=== PATIENT | male | born 1960 | race African-American/Black ===

== ENCOUNTER → 2016-07-28 | Outpatient (CLI) | payer MEDICARE ==
[2016-07-28 15:34] LABS: BASOPHILS % (AUTO) 0.8 % (0.0-2.0); EOSINOPHILS % (AUTO) 2.5 % (0.0-3.0); LYMPHOCYTES % (AUTO) 15.7 % (20.0-45.0); MEAN CORPUSCULAR HEMOGLOBIN 27.3 PG (27.0-31.0); MEAN CORPUSCULAR HGB CONC 30.7 G/DL (32.0-36.0); MEAN CORPUSCULAR VOLUME 89 FL (80-99); MEAN PLATELET VOLUME 6.1 FL (6.5-10.1); MONOCYTES % (AUTO) 6.6 % (1.0-10.0); NEUTROPHILS % (AUTO) 74.4 % (45.0-75.0); PLATELET COUNT 310 K/UL (150-450); RED BLOOD COUNT 6.29 M/UL (4.70-6.10); RED CELL DISTRIBUTION WIDTH 14.9 % (11.6-14.8); WHITE BLOOD COUNT 12.6 K/UL (4.8-10.8)
[2016-07-28 16:02] LABS: ALANINE AMINOTRANSFERASE 18 U/L (3-41); ALBUMIN/GLOBULIN RATIO 1.2 (1.0-2.7); ANION GAP 14 (5-15); ASPARTATE AMINO TRANSFERASE 13 U/L (5-40); CALCIUM 9.7 mg/dL (8.6-10.2); CARBON DIOXIDE 31 mEQ/L (20-30); CHLORIDE 97 mEQ/L (98-107); CHOLESTEROL 218 mg/dL (< 200); CHOLESTEROL/HDL RATIO 3.7 (3.3-4.4); GLOMERULAR FILTRATION RATE > 60 mL/min (>60); HEMOLYSIS 7; LDL CHOLESTEROL (CALC.) 141 mg/dL (60-99); POTASSIUM 4.4 mEQ/L (3.4-4.9); SODIUM 142 mEQ/L (135-145); TOTAL PROTEIN 7.3 g/dL (6.6-8.7)
== END | disposition home or self-care (01) ==
LOC: LAB 15:03
DX: I10 Essential (primary) hypertension (principal); E11.9 Type 2 diabetes mellitus without complications; E66.01 Morbid (severe) obesity due to excess calories; I50.9 Heart failure, unspecified
CPT/HCPCS: 36415; 80053; 80061; 83036; 83090; 83880; 85025

== ENCOUNTER 2018-02-19 17:43 | Inpatient (IN) | payer MEDICARE ==
[2018-02-19] VITALS (14 sets, daily range): BP systolic 77–104; BP diastolic 28–95
[~2018-02-19] VITALS: Ht 180.3 cm; Wt 174.7 kg
[2018-02-19 18:28] LABS: HEMATOCRIT 24.3 % (42.0-52.0); HEMOGLOBIN 8.5 G/DL (14.2-18.0); MEAN CORPUSCULAR VOLUME 87 FL (80-99); PLATELET COUNT 60 K/UL (150-450); RED CELL DISTRIBUTION WIDTH 13.8 % (11.6-14.8); WHITE BLOOD COUNT 6.8 K/UL (4.8-10.8)
[2018-02-19 18:36] LABS: ALANINE AMINOTRANSFERASE 151 U/L (12-78); ALBUMIN 4.1 G/DL (3.4-5.0); ALBUMIN/GLOBULIN RATIO 1.5 (1.0-2.7); ALKALINE PHOSPHATASE 57 U/L (46-116); ANION GAP 11 mmol/L (5-15); ASPARTATE AMINO TRANSFERASE 37 U/L (15-37); BILIRUBIN,TOTAL 0.6 MG/DL (0.2-1.0); BLOOD UREA NITROGEN 82 mg/dL (7-18); CALCIUM 10.9 MG/DL (8.5-10.1); CARBON DIOXIDE 21 MMOL/L (21-32); CHLORIDE 96 MMOL/L (98-107); CREATINE KINASE 335 U/L (26-308); CREATININE 9.6 MG/DL (0.55-1.30); SODIUM 129 MMOL/L (136-145)
[2018-02-19 18:40] LABS: POTASSIUM 7.8 MMOL/L (3.5-5.1)
[2018-02-19] MEDS ORDERED: Insulin Human Regular 100units/ml 3ml IV ONE (18:45)
[2018-02-19] MEDS ORDERED: Calcium Gluconate 1gm/10ml vial IVP ONE (18:45)
[2018-02-19] MEDS ORDERED: Sodium Bicarbonate 50ml Carp IV ONE (18:45)
[2018-02-19] MEDS ORDERED: Atropine Inj 1mg/10ml Syr IVP ONE (18:45)
[2018-02-19] MEDS ORDERED: Albuterol ud Inhalation HHN ONE (18:45)
[2018-02-19] MEDS ORDERED: GLYBURIDE5 MG PO (20:40)
[2018-02-19] MEDS ORDERED: ASPIR 8181 MG ORAL (20:40)
[2018-02-19] MEDS ORDERED: ISOSORBIDE DINIT5 MG ORAL (20:40)
[2018-02-19] MEDS ORDERED: NORVASC10 MG ORAL (20:40)
[2018-02-19] MEDS ORDERED: CARVEDILOL3.125 MG ORAL (20:40)
[2018-02-19] MEDS ORDERED: METFORMIN HCL850 M1 ORAL (20:40)
[2018-02-19] MEDS ORDERED: BENAZEPRIL HCL20 MG ORAL (20:40)
[2018-02-19] MEDS ORDERED: Cefepime HCl 2 GM in D5W 55 ML IVPB ONE (20:45)
[2018-02-19] MEDS ORDERED: Heparin 5000 units/ml inj ONE (21:03)
[2018-02-19] MEDS ORDERED: Heparin 5000 units/ml inj SUBQ SCH (21:15)
[2018-02-19 21:17] LABS: APPEARANCE,URINE CLEAR; BILIRUBIN, URINE 1+ (NEGATIVE); GLUCOSE, URINE (UA) NEGATIVE (NEGATIVE); KETONES,URINE NEGATIVE (NEGATIVE); LEUKOCYTE ESTERASE ,URINE 1+ (NEGATIVE); NITRITE,URINE NEGATIVE (NEGATIVE); PH,URINE 5 (4.5-8.0); PROTEIN,URINE 2+ (NEGATIVE); UROBILINOGEN,URINE NORMAL MG/DL (0.0-1.0)
--- NOTE | 2018-02-19 21:21 | Brief Operative Note ---
Immediate Post Operative Note Operative Note Pre-op Diagnosis: sepsis, shock, hypotension, hyperkalemia, renal insufficiency, Procedure: 1. right IJ TLC placement 2. right IJ HD cath placement Post-op Diagnosis: same as pre-op Surgeon: nury Anesthesia: local Specimen: none Complications: none Condition: unstable Fluids: n/a Estimated Blood Loss: minimal Drains: none Implant(s) used?: Iain Muse Feb 19, 2018 21:21
[2018-02-19 21:28] LABS: COLOR,URINE YELLOW
[2018-02-19] MEDS ORDERED: Cefepime HCl 2 GM in D5W 110 ML IVPB ONE (21:30)
--- NOTE | 2018-02-19 21:55 | Pulmonolgy Critical Care Note ---
Critical Care - Asmt/Plan Problems: (1) HTN (hypertension) (2) Diabetes (3) Morbid obesity (4) Obesity hypoventilation syndrome (5) ONELIA (obstructive sleep apnea) (6) Dehydration (7) Hypotension (8) Hyponatremia (9) Hyperkalemia (10) VITOR (acute kidney injury) (11) Anemia Respiratory: monitor respiratory rate, adjust FIO2 - PRN O2 to keep SaO2 > 90% , CXR, ABG, other - BiPAP 15/5 qHS and PRN Cardiac: continue to monitor HR/BP, other - TTE Renal: keep IV fluid, check electrolytes, other - HD without UF ordered by renal Infectious Disease: continue antibiotics - per ID, F/u Cx's Gastrointestinal: start feedings - PO with aspiration precautions Endocrine: monitor blood sugar, check TSH, check HgA1C, other - Sliding scale Neurologic: keep patient comfortable Prophylaxis: Protonix, Heparin Disposition: keep in ICU Time Spent (Minutes): 60 Notes Reviewed: renal, other - Surgery, ERMD Discussed with: nurses, consultants Critical Care - Objective Last 24 Hour Vital Signs Date Time Temp Pulse Resp B/P (MAP) Pulse Ox O2 Delivery O2 Flow Rate FiO2 02/19/18 19:45 98.4 69 20 93/30 100 Nasal Cannula 2.0 28 98.4 02/19/18 19:30 98.2 64 22 87/28 100 Nasal Cannula 2.0 28 98.2 02/19/18 19:27 60 20 100 Nasal Cannula 2.0 28 02/19/18 19:21 52 19 100 Nasal Cannula 2.0 28 02/19/18 19:20 57 19 Nasal Cannula 2.0 28 02/19/18 19:20 Nasal Cannula 2.0 28 02/19/18 19:15 57 19 91/38 100 Nasal Cannula 2.0 02/19/18 19:10 57 19 91/43 100 Nasal Cannula 2.0 02/19/18 19:00 60 19 87/37 100 Nasal Cannula 2.0 02/19/18 19:00 58 19 92/43 100 Nasal Cannula 2.0 02/19/18 18:30 58 17 88/56 100 Nasal Cannula 2.0 02/19/18 17:45 98.4 56 16 77/55 100 Nasal Cannula 2.0 98.4 02/19/18 17:45 58 19 Nasal Cannula 2.0 02/19/18 17:37 98.4 64 16 77/55 99 Room Air 98.4 Status: awake, other - morbidly obese Condition: critical HEENT: atraumatic, normocephalic Neck: full ROM, trach Lungs: clear Heart: HR/BP unstable Abdomen: soft, non-tender, active bowel sounds Extremities: no C/C/E Accucheck: 66 Blood Sugars: BS not controlled Critical Care - Subjective ICU Day: 1 Intubation Day: N/A Interval Events: 57 M h/o CHRONIC HYPERCAPNIC RF, ONELIA/OHV, CKD, HTN, HL, DM BIB EMS with AMS and hypoTN, Na 129, K 7.8, BUN/Cr 82/9.6. Seen by surgery R ABHIJIT Lawrence placed, HD ordered, getting IVF. No F/C/CP/SOB/cough/VALENTINE/dizziness/N/V/D/C. He states he uses his BiPAP at home nightly and is on 2L O2 RTC> Active Scripts Medications Dose Route/Sig Max Daily Dose Days Date Category Carvedilol* (Carvedilol) 3.125 Mg Tablet Unknown Dose ORAL EVERY 12 HOURS 02/19/18 Reported Isosorbide Dinitrate* (Isosorbide Dinitrate) 5 Mg Tablet Unknown Dose ORAL 02/19/18 Reported Aspir 81* (Aspirin) 81 Mg Tablet.dr 81 Mg ORAL DAILY 02/19/18 Reported Glyburide 5 Mg Tablet 5 Mg PO 02/19/18 Reported Metformin Hcl* (Metformin HCl) 850 Mg Tablet 750 Mg ORAL DAILY 02/19/18 Reported Benazepril Hcl* (Benazepril HCl) 20 Mg Tablet 20 Mg ORAL EVERY 12 HOURS 02/19/18 Reported Norvasc (Amlodipine Besylate) 10 Mg Tablet 10 Mg ORAL DAILY 02/19/18 Reported Condition: critical IV Access: central EKG Rhythm: Sinus Rhythm FI02: 28 Sputum Amount: None Fluids: NS wide open Labs: Laboratory Tests Test 02/19/18 17:55 02/19/18 19:54 White Blood Count 6.8 K/UL (4.8-10.8) Red Blood Count 2.80 M/UL (4.70-6.10) L Hemoglobin 8.5 G/DL (14.2-18.0) L Hematocrit 24.3 % (42.0-52.0) L Mean Corpuscular Volume 87 FL (80-99) Mean Corpuscular Hemoglobin 30.5 PG (27.0-31.0) Mean Corpuscular Hemoglobin Concent 35.1 G/DL (32.0-36.0) Red Cell Distribution Width 13.8 % (11.6-14.8) Platelet Count 60 K/UL (150-450) L Mean Platelet Volume 6.5 FL (6.5-10.1) Neutrophils (%) (Auto) % (45.0-75.0) Lymphocytes (%) (Auto) % (20.0-45.0) Monocytes (%) (Auto) % (1.0-10.0) Eosinophils (%) (Auto) % (0.0-3.0) Basophils (%) (Auto) % (0.0-2.0) Differential Total Cells Counted 100 Neutrophils % (Manual) 49 % (45-75) Lymphocytes % (Manual) 38 % (20-45) Monocytes % (Manual) 10 % (1-10) Eosinophils % (Manual) 2 % (0-3) Basophils % (Manual) 1 % (0-2) Band Neutrophils 0 % (0-8) Platelet Estimate Decreased L Platelet Morphology Normal Hypochromasia 1+ Anisocytosis 1+ Sodium Level 129 MMOL/L (136-145) L Potassium Level 7.8 MMOL/L (3.5-5.1) *H Chloride Level 96 MMOL/L (98-107) L Carbon Dioxide Level 21 MMOL/L (21-32) Anion Gap 11 mmol/L (5-15) Blood Urea Nitrogen 82 mg/dL (7-18) H Creatinine 9.6 MG/DL (0.55-1.30) H Estimat Glomerular Filtration Rate 6.9 mL/min (>60) Glucose Level 86 MG/DL (74-106) Lactic Acid Level 1.50 mmol/L (0.4-2.0) Calcium Level 10.9 MG/DL (8.5-10.1) H Total Bilirubin 0.6 MG/DL (0.2-1.0) Aspartate Amino Transf (AST/SGOT) 37 U/L (15-37) Alanine Aminotransferase (ALT/SGPT) 151 U/L (12-78) H Alkaline Phosphatase 57 U/L (46-116) Total Creatine Kinase 335 U/L (26-308) H Troponin I 0.000 ng/mL (0.000-0.056) Total Protein 6.8 G/DL (6.4-8.2) Albumin 4.1 G/DL (3.4-5.0) Globulin 2.7 g/dL Albumin/Globulin Ratio 1.5 (1.0-2.7) Urine Color Yellow Urine Appearance Clear Urine pH 5 (4.5-8.0) Urine Specific [place] 1.015 (1.005-1.035) Urine Protein 2+ (NEGATIVE) H Urine Glucose (UA) Negative (NEGATIVE) Urine Ketones Negative (NEGATIVE) Urine Occult Blood 2+ (NEGATIVE) H Urine Nitrite Negative (NEGATIVE) Urine Bilirubin 1+ (NEGATIVE) H Urine Ictotest Negative (NEGATIVE) Urine Urobilinogen Normal MG/DL (0.0-1.0) Urine Leukocyte Esterase 1+ (NEGATIVE) H Urine RBC 5-10 /HPF (0 - 0) H Urine WBC 2-4 /HPF (0 - 0) Urine Squamous Epithelial Cells None /LPF (NONE/OCC) Urine Bacteria Few /HPF (NONE) Ovidio Brito MD Feb 19, 2018 21:55
--- NOTE | 2018-02-19 22:00 | Consultation ---
Consult Note Consult Note seen in ER Assessment/Plan acute renal failure- (on Glucophage- Lotensin), Hypotension underlying chronic renal failure- morbid obesity- DM Hypotension HyperKalemia ONELIA Anemia IV fluid- Dialysis - ICU setting Keep BP over 90 syst Anemia mehta avoid nephrotoxics Addison Sparks MD Feb 19, 2018 22:00
[2018-02-19] MEDS: Piperacillin/Tazobactam 2.25 GM in NS 110 ML IVPB SCH (22:51)
[2018-02-19] MEDS: DAPTOmycin 1,000 MG in NS 55 ML IV SCH (23:00)
[2018-02-20] VITALS (34 sets, daily range): BP systolic 61–141; BP diastolic 26–121
--- NOTE | 2018-02-20 00:05 | Emergency Room Report ---
History of Present Illness General Chief Complaint: Abnormal Labs Source: EMS Present Illness HPI Mr. Lopez is a very pleasant 57 yo male with hx of severe obesity, ONELIA, CKD, and NIDDM. He presents with severe generalized weakness for 3 weeks. Worse today. Unable to get up and stand on his own. He has been dieting recently. He is only eating vegetables and drinking water. He also been using laxatives which has caused diffuse diarrhea. He's had bilateral hip pain for several weeks since being bedbound. He denies fever. Denies abdominal pain. Denies chest pain. I spoke extensively with PCP Dr. Dimas who gave a comprehensive medical history. Patient has normal ejection fraction according to his report. His creatinine level ranges from 2-3. Medications Amlodipine 10 mg Aspirin 325 mg benazepril 20 mg Glyburide 5 mg Metformin 750 mg Isosorbide 10 mg Albuterol Allergies: Coded Allergies: No Known Allergies (Unverified , 02/19/18) Nursing Documentation-[facility] Past Medical History: No History, Except For Hx Cardiac Problems: Yes - CHF Hx Hypertension: Yes Hx Diabetes: Yes - type 2 Review of Systems Constitutional: Reports: malaise Respiratory: Denies: cough Cardiovascular: Denies: chest pain Gastrointestinal: Reports: diarrhea; Denies: abdominal pain, melena, hematemesis Musculoskeletal: Reports: back pain, muscle pain All Other Systems: negative except mentioned in HPI Physical Exam Vital Signs Date Time Temp Pulse Resp B/P (MAP) Pulse Ox O2 Delivery O2 Flow Rate FiO2 02/19/18 17:37 98.4 64 16 77/55 99 Room Air 98.4 02/19/18 17:45 2.0 02/19/18 19:20 28 Sp02 EP Interpretation: reviewed, normal General Appearance: alert, non-toxic, mild distress, other - pale clammy Head: normocephalic, atraumatic Eyes: bilateral eye normal inspection, bilateral eye PERRL ENT: hearing grossly normal, normal pharynx, no angioedema, normal voice, dry mucus membranes Neck: full range of motion, supple/symm/no masses Respiratory: chest non-tender, lungs clear, normal breath sounds, speaking full sentences Cardiovascular #1: regular rate, rhythm, no murmur Cardiovascular #2: 1+ radial (R), 1+ radial (L) Gastrointestinal: normal bowel sounds, non tender, soft, no guarding, no rebound Rectal: normal exam, normal rectal tone, heme negative stool, other - brown stool Musculoskeletal: back normal, normal range of motion, non-tender Neurologic: alert, oriented x3, responsive, motor strength/tone normal, sensory intact, speech normal Psychiatric: judgement/insight normal, memory normal, mood/affect normal Skin: normal color, no rash, warm/dry, other - no ulcers no skin break down Lymphatic: no adenopathy Procedures Critical Care Time Critical Care Time 100 minutes of critical care time excluding procedures were used in the care of the patient. I reviewed labs and imaging. I reviewed previous electronic medical record. I updated at the bedside. I spoke with multiple consultants. Patient required multiple reassessments. Medical Decision Making Diagnostic Impression: Primary Impression: VITOR (acute kidney injury) Additional Impressions: Obesity hypoventilation syndrome Anemia Diabetes Hyponatremia Morbid obesity ER Course Mr. Lopez had a prolonged ER course. I spoke with Dr. Dimas PMDevonte upon arrival gave extensive medical history on patient. Patient had persistent hypotension for which I felt was due to hypovolemia with history of decreased by mouth intake and laxative use as well as diarrhea. No evidence of GI bleeding. Hemoccult negative brown stool on exam. No indication of cardiac disease. Did have EKG abnormalities with widened QRS bradycardia and prolonged VA interval. I felt the EKG changes were due to hyperkalemia. Patient was treated appropriately for hyperkalemia. Still he had persistent hypotension. He received total 2 L normal saline with slight improvement of blood pressure. I highly appreciate the assistance of multiple consultants who evaluated patient and provided excellent care. These physicians include Dr. Santiago, Dr. Brito, Dr. Hsieh and Dr. Stewart. Mr. Lopez is admitted to ICU in criticial condition. Labs Test 02/19/18 17:55 02/19/18 19:54 02/19/18 21:44 White Blood Count 6.8 K/UL (4.8-10.8) Red Blood Count 2.80 M/UL (4.70-6.10) Hemoglobin 8.5 G/DL (14.2-18.0) Hematocrit 24.3 % (42.0-52.0) Mean Corpuscular Volume 87 FL (80-99) Mean Corpuscular Hemoglobin 30.5 PG (27.0-31.0) Mean Corpuscular Hemoglobin Concent 35.1 G/DL (32.0-36.0) Red Cell Distribution Width 13.8 % (11.6-14.8) Platelet Count 60 K/UL (150-450) Mean Platelet Volume 6.5 FL (6.5-10.1) Neutrophils (%) (Auto) % (45.0-75.0) Lymphocytes (%) (Auto) % (20.0-45.0) Monocytes (%) (Auto) % (1.0-10.0) Eosinophils (%) (Auto) % (0.0-3.0) Basophils (%) (Auto) % (0.0-2.0) Differential Total Cells Counted 100 Neutrophils % (Manual) 49 % (45-75) Lymphocytes % (Manual) 38 % (20-45) Monocytes % (Manual) 10 % (1-10) Eosinophils % (Manual) 2 % (0-3) Basophils % (Manual) 1 % (0-2) Band Neutrophils 0 % (0-8) Platelet Estimate Decreased Platelet Morphology Normal Hypochromasia 1+ Anisocytosis 1+ Sodium Level 129 MMOL/L (136-145) Potassium Level 7.8 MMOL/L (3.5-5.1) Chloride Level 96 MMOL/L (98-107) Carbon Dioxide Level 21 MMOL/L (21-32) Anion Gap 11 mmol/L (5-15) Blood Urea Nitrogen 82 mg/dL (7-18) Creatinine 9.6 MG/DL (0.55-1.30) Estimat Glomerular Filtration Rate 6.9 mL/min (>60) Glucose Level 86 MG/DL (74-106) Lactic Acid Level 1.50 mmol/L (0.4-2.0) Calcium Level 10.9 MG/DL (8.5-10.1) Total Bilirubin 0.6 MG/DL (0.2-1.0) Aspartate Amino Transf (AST/SGOT) 37 U/L (15-37) Alanine Aminotransferase (ALT/SGPT) 151 U/L (12-78) Alkaline Phosphatase 57 U/L (46-116) Total Creatine Kinase 335 U/L (26-308) Troponin I 0.000 ng/mL (0.000-0.056) Total Protein 6.8 G/DL (6.4-8.2) Albumin 4.1 G/DL (3.4-5.0) Globulin 2.7 g/dL Albumin/Globulin Ratio 1.5 (1.0-2.7) Urine Color Yellow Urine Appearance Clear Urine pH 5 (4.5-8.0) Urine Specific [place] 1.015 (1.005-1.035) Urine Protein 2+ (NEGATIVE) Urine Glucose (UA) Negative (NEGATIVE) Urine Ketones Negative (NEGATIVE) Urine Occult Blood 2+ (NEGATIVE) Urine Nitrite Negative (NEGATIVE) Urine Bilirubin 1+ (NEGATIVE) Urine Ictotest Negative (NEGATIVE) Urine Urobilinogen Normal MG/DL (0.0-1.0) Urine Leukocyte Esterase 1+ (NEGATIVE) Urine RBC 5-10 /HPF (0 - 0) Urine WBC 2-4 /HPF (0 - 0) Urine Squamous Epithelial Cells None /LPF (NONE/OCC) Urine Bacteria Few /HPF (NONE) Arterial Blood pH 7.333 (7.350-7.450) Arterial Blood Partial Pressure CO2 29.3 mmHg (35.0-45.0) Arterial Blood Partial Pressure O2 40.5 mmHg (75.0-100.0) Arterial Blood HCO3 15.2 mmol/L (22.0-26.0) Arterial Blood Oxygen Saturation 71.9 % (92.0-98.0) Arterial Blood Base Excess -9.7 Doyle Test Positive EKG Diagnostic Results Rate: bradycardiac Rhythm: other - sinus bradycardia ST Segments: other - right bundle branch block, wide QRS Other Impression prolonged VA interval wide QRS No ST elevation Chest X-Ray Diagnostic Results Chest X-Ray Diagnostic Results : Chest X-Ray Ordered: Yes # of Views/Limited/Complete: 1 View Indication: Other - critically ill Interpretation: no consolidation, no effusion, no pneumothorax Impression: No acute disease Electronically Signed by: This image has been electronically signed by Dr. David Wong Reevaluation Time: 20:00 Last Vital Signs Date Time Temp Pulse Resp B/P (MAP) Pulse Ox O2 Delivery O2 Flow Rate FiO2 02/19/18 22:59 Venturi Mask 15.0 50 02/19/18 22:59 66 20 02/19/18 22:45 100/44 (62) 100 02/19/18 22:30 94.7 94.7 Status: unchanged Reevaluation Impression persistent hypotension throughout majority of ER encounter Disposition: ADMITTED INPATIENT Condition: Critical Referrals: CAITLIN DIMAS (PCP) DAVID WONG Feb 20, 2018 00:05
[2018-02-20] MEDS ORDERED: NovoLOG Insulin Flexpen SUBQ SCH (06:30)
[2018-02-20 07:00] LABS: % IRON SATURATION 36 % (15-50); IRON 84 ug/dL (50-175); TOTAL IRON BINDING CAPACITY 236 ug/dL (250-450)
[2018-02-20 07:08] LABS: GAMMA GLUTAMYL TRANSPEPTIDASE 314 U/L (5-85); PHOSPHORUS 5.1 MG/DL (2.5-4.9)
[2018-02-20 07:20] LABS: HEMATOCRIT 20.2 % (42.0-52.0); MEAN CORPUSCULAR VOLUME 86 FL (80-99); PLATELET COUNT 53 K/UL (150-450); RED BLOOD COUNT 2.36 M/UL (4.70-6.10); RED CELL DISTRIBUTION WIDTH 13.6 % (11.6-14.8); WHITE BLOOD COUNT 6.3 K/UL (4.8-10.8)
[2018-02-20] MEDS: DAPTOmycin 1,000 MG in NS 55 ML IV SCH (07:20)
[2018-02-20 08:10] LABS: ALANINE AMINOTRANSFERASE 132 U/L (12-78); ALBUMIN 3.5 G/DL (3.4-5.0); ALBUMIN/GLOBULIN RATIO 1.5 (1.0-2.7); ALKALINE PHOSPHATASE 45 U/L (46-116); ANION GAP 12 mmol/L (5-15); ASPARTATE AMINO TRANSFERASE 36 U/L (15-37); BILIRUBIN,TOTAL 0.5 MG/DL (0.2-1.0); BLOOD UREA NITROGEN 78 mg/dL (7-18); CALCIUM 9.6 MG/DL (8.5-10.1); CARBON DIOXIDE 20 MMOL/L (21-32); CHLORIDE 101 MMOL/L (98-107); CHOLESTEROL 123 MG/DL (< 200); CREATININE 8.8 MG/DL (0.55-1.30); FERRITIN 494 NG/ML (8-388); HDL CHOLESTEROL 39 MG/DL (40-60); SODIUM 132 MMOL/L (136-145); TRIGLYCERIDES 64 MG/DL (30-150)
[2018-02-20 08:13] LABS: POTASSIUM 7.1 MMOL/L (3.5-5.1)
[2018-02-20] MEDS ORDERED: Albuterol/Ipratropium 3ml neb HHN PRN (08:30)
--- NOTE | 2018-02-20 08:30 | Pulmonolgy Critical Care Note ---
Critical Care - Asmt/Plan Problems: (1) HTN (hypertension) (2) Diabetes (3) Morbid obesity (4) Obesity hypoventilation syndrome (5) ONELIA (obstructive sleep apnea) (6) Dehydration (7) Hypotension (8) Hyponatremia (9) Hyperkalemia (10) VITOR (acute kidney injury) (11) Anemia (12) Hypoglycemia (13) Thrombocytopenia Respiratory: monitor respiratory rate, adjust FIO2 - Titrate to keep SaO2 ~ 90 , CXR, ABG, other - BiPAP 12/5 qHS and PRN, RTC and PRN HHN's Cardiac: other - F/U TTe Renal: keep IV fluid, check electrolytes, other - iHD per renal Infectious Disease: continue antibiotics - per ID, F/U Cx's Gastrointestinal: start feedings - PO feeding, aspiration precautions Endocrine: monitor blood sugar, continue sliding scale insulin Hematologic: monitor H/H, other - Check LDH, haptoglobin, retic, Fe panel, ferring, duplex bLE Prophylaxis: Protonix, SCDs Disposition: keep in ICU Time Spent (Minutes): 50 Notes Reviewed: renal Discussed with: nurses, consultants Critical Care - Objective Last 24 Hour Vital Signs Date Time Temp Pulse Resp B/P (MAP) Pulse Ox O2 Delivery O2 Flow Rate FiO2 02/20/18 07:00 82 23 107/50 (69) 100 02/20/18 06:00 81 26 107/51 (69) 100 02/20/18 05:00 76 20 95/32 (53) 100 02/20/18 04:00 50 02/20/18 04:00 95.4 74 20 101/36 (57) 100 95.4 02/20/18 04:00 Venturi Mask 15.0 02/20/18 03:57 76 02/20/18 03:30 76 20 100/39 (59) 100 02/20/18 03:00 77 17 76/36 (49) 100 02/20/18 02:53 Venturi Mask 13.5 02/20/18 02:44 94.7 79 20 80/39 (53) 94.7 02/20/18 02:00 73 17 61/26 (38) 100 02/20/18 01:00 71 16 74/33 (47) 100 02/20/18 00:22 71 02/20/18 00:00 69 15 73/50 (58) 100 02/20/18 00:00 50 02/20/18 00:00 Venturi Mask 15.0 02/19/18 23:30 74 22 104/44 (64) 100 02/19/18 23:00 93.9 72 20 99/95 (96) 93.9 02/19/18 23:00 Venturi Mask 13.5 02/19/18 23:00 72 19 92/35 (54) 100 02/19/18 22:59 Venturi Mask 15.0 50 02/19/18 22:59 66 20 Venturi Mask 15.0 50 02/19/18 22:45 73 19 100/44 (62) 100 02/19/18 22:30 94.7 74 20 96/49 (65) 98 94.7 02/19/18 22:17 82 02/19/18 22:16 93.9 76 20 84/51 (62) 98 93.9 02/19/18 22:15 Nasal Cannula 2.0 02/19/18 22:13 98.4 65 20 95/34 100 Nasal Cannula 2.0 28 98.4 02/19/18 22:13 98.4 69 20 93/30 100 Nasal Cannula 2.0 28 98.4 02/19/18 22:10 98.4 69 20 93/30 100 Nasal Cannula 2.0 28 98.4 02/19/18 19:45 98.4 69 20 93/30 100 Nasal Cannula 2.0 28 98.4 02/19/18 19:30 98.2 64 22 87/28 100 Nasal Cannula 2.0 28 98.2 02/19/18 19:27 60 20 100 Nasal Cannula 2.0 28 02/19/18 19:21 52 19 100 Nasal Cannula 2.0 28 02/19/18 19:20 57 19 Nasal Cannula 2.0 28 02/19/18 19:20 Nasal Cannula 2.0 28 02/19/18 19:15 57 19 91/38 100 Nasal Cannula 2.0 02/19/18 19:10 57 19 91/43 100 Nasal Cannula 2.0 02/19/18 19:00 60 19 87/37 100 Nasal Cannula 2.0 02/19/18 19:00 58 19 92/43 100 Nasal Cannula 2.0 02/19/18 18:30 58 17 88/56 100 Nasal Cannula 2.0 02/19/18 17:45 98.4 56 16 77/55 100 Nasal Cannula 2.0 98.4 02/19/18 17:45 58 19 Nasal Cannula 2.0 02/19/18 17:37 98.4 64 16 77/55 99 Room Air 98.4 Status: awake, other - morbidly obese Condition: improving HEENT: atraumatic, normocephalic Lungs: clear Heart: HR/BP stable Abdomen: soft, non-tender, active bowel sounds Extremities: no C/C/E Micro: Microbiology Date/Time Source Procedure Growth Status 02/19/18 19:54 Rectum Received Accucheck: 49 Blood Sugars: BS not controlled Critical Care - Subjective ROS Limited/Unobtainable: Yes ICU Day: 2 Intubation Day: N/A Interval Events: S/P HD net 0 BS this am 49 HH and plt lower Condition: improving IV Access: central - R IJ [place] EKG Rhythm: Sinus Rhythm FI02: 50 Sputum Amount: None Fluids: NS@200 I&O: Intake and Output 02/19/18 02/20/18 19:00 07:00 Intake Total 2110 ml Output Total 120 ml Balance 1990 ml Intake Oral 200 ml IV Total 1910 ml Output Urine Total 120 ml Hemodialysis UF 0 ml # Voids 1 Subjective: Feels better, less SOB, no cough, no SOB, no CP, no F/C, no N/V/D/C, no abd pain or urinary complaints Labs: Laboratory Tests Test 02/19/18 17:55 02/19/18 19:54 02/19/18 21:44 02/20/18 04:40 White Blood Count 6.8 K/UL (4.8-10.8) 6.3 K/UL (4.8-10.8) Red Blood Count 2.80 M/UL (4.70-6.10) L 2.36 M/UL (4.70-6.10) L Hemoglobin 8.5 G/DL (14.2-18.0) L 7.0 G/DL (14.2-18.0) L Hematocrit 24.3 % (42.0-52.0) L 20.2 % (42.0-52.0) L Mean Corpuscular Volume 87 FL (80-99) 86 FL (80-99) Mean Corpuscular Hemoglobin 30.5 PG (27.0-31.0) 29.9 PG (27.0-31.0) Mean Corpuscular Hemoglobin Concent 35.1 G/DL (32.0-36.0) 34.8 G/DL (32.0-36.0) Red Cell Distribution Width 13.8 % (11.6-14.8) 13.6 % (11.6-14.8) Platelet Count 60 K/UL (150-450) L 53 K/UL (150-450) L Mean Platelet Volume 6.5 FL (6.5-10.1) 6.6 FL (6.5-10.1) Neutrophils (%) (Auto) % (45.0-75.0) % (45.0-75.0) Lymphocytes (%) (Auto) % (20.0-45.0) % (20.0-45.0) Monocytes (%) (Auto) % (1.0-10.0) % (1.0-10.0) Eosinophils (%) (Auto) % (0.0-3.0) % (0.0-3.0) Basophils (%) (Auto) % (0.0-2.0) % (0.0-2.0) Differential Total Cells Counted 100 100 Neutrophils % (Manual) 49 % (45-75) 45 % (45-75) Lymphocytes % (Manual) 38 % (20-45) 42 % (20-45) Monocytes % (Manual) 10 % (1-10) 12 % (1-10) H Eosinophils % (Manual) 2 % (0-3) 1 % (0-3) Basophils % (Manual) 1 % (0-2) 0 % (0-2) Band Neutrophils 0 % (0-8) 0 % (0-8) Platelet Estimate Decreased L Decreased L Platelet Morphology Normal Normal Hypochromasia 1+ 3+ Anisocytosis 1+ 1+ Sodium Level 129 MMOL/L (136-145) L 132 MMOL/L (136-145) L Potassium Level 7.8 MMOL/L (3.5-5.1) *H 7.1 MMOL/L (3.5-5.1) *H Chloride Level 96 MMOL/L (98-107) L 101 MMOL/L (98-107) Carbon Dioxide Level 21 MMOL/L (21-32) 20 MMOL/L (21-32) L Anion Gap 11 mmol/L (5-15) 12 mmol/L (5-15) Blood Urea Nitrogen 82 mg/dL (7-18) H 78 mg/dL (7-18) H Creatinine 9.6 MG/DL (0.55-1.30) H 8.8 MG/DL (0.55-1.30) H Estimat Glomerular Filtration Rate 6.9 mL/min (>60) 7.6 mL/min (>60) Glucose Level 86 MG/DL (74-106) 25 MG/DL (74-106) *L Lactic Acid Level 1.50 mmol/L (0.4-2.0) Calcium Level 10.9 MG/DL (8.5-10.1) H 9.6 MG/DL (8.5-10.1) Total Bilirubin 0.6 MG/DL (0.2-1.0) 0.5 MG/DL (0.2-1.0) Aspartate Amino Transf (AST/SGOT) 37 U/L (15-37) 36 U/L (15-37) Alanine Aminotransferase (ALT/SGPT) 151 U/L (12-78) H 132 U/L (12-78) H Alkaline Phosphatase 57 U/L (46-116) 45 U/L (46-116) L Total Creatine Kinase 335 U/L (26-308) H Troponin I 0.000 ng/mL (0.000-0.056) 0.172 ng/mL (0.000-0.056) Total Protein 6.8 G/DL (6.4-8.2) 5.8 G/DL (6.4-8.2) L Albumin 4.1 G/DL (3.4-5.0) 3.5 G/DL (3.4-5.0) Globulin 2.7 g/dL 2.3 g/dL Albumin/Globulin Ratio 1.5 (1.0-2.7) 1.5 (1.0-2.7) Urine Color Yellow Urine Appearance Clear Urine pH 5 (4.5-8.0) Urine Specific [place] 1.015 (1.005-1.035) Urine Protein 2+ (NEGATIVE) H Urine Glucose (UA) Negative (NEGATIVE) Urine Ketones Negative (NEGATIVE) Urine Occult Blood 2+ (NEGATIVE) H Urine Nitrite Negative (NEGATIVE) Urine Bilirubin 1+ (NEGATIVE) H Urine Ictotest Negative (NEGATIVE) Urine Urobilinogen Normal MG/DL (0.0-1.0) Urine Leukocyte Esterase 1+ (NEGATIVE) H Urine RBC 5-10 /HPF (0 - 0) H Urine WBC 2-4 /HPF (0 - 0) Urine Squamous Epithelial Cells None /LPF (NONE/OCC) Urine Bacteria Few /HPF (NONE) Arterial Blood pH 7.333 (7.350-7.450) Arterial Blood Partial Pressure CO2 29.3 mmHg (35.0-45.0) L Arterial Blood Partial Pressure O2 40.5 mmHg (75.0-100.0) Arterial Blood HCO3 15.2 mmol/L (22.0-26.0) L Arterial Blood Oxygen Saturation 71.9 % (92.0-98.0) L Arterial Blood Base Excess -9.7 Doyle Test Positive Nucleated Red Blood Cells 2 /100 WBC Spherocytes 2+ Hemoglobin A1c 6.3 % (4.3-6.0) H Uric Acid 21.4 MG/DL (2.6-7.2) H Phosphorus Level 5.1 MG/DL (2.5-4.9) H Magnesium Level 1.9 MG/DL (1.8-2.4) Iron Level 84 ug/dL (50-175) Total Iron Binding Capacity 236 ug/dL (250-450) L Percent Iron Saturation 36 % (15-50) Unsaturated Iron Binding 152 ug/dL (112-346) Ferritin 494 NG/ML (8-388) H Gamma Glutamyl Transpeptidase 314 U/L (5-85) H C-Reactive Protein, Quantitative < 0.4 mg/dL (0.00-0.90) Pro-B-Type Natriuretic Peptide 751 pg/mL (0-125) H Triglycerides Level 64 MG/DL (30-150) Cholesterol Level 123 MG/DL (< 200) LDL Cholesterol 72 mg/dL (<100) HDL Cholesterol 39 MG/DL (40-60) L Cholesterol/HDL Ratio 3.2 (3.3-4.4) L Vitamin B12 Level 341 PG/ML (193-986) Folate 4.9 NG/ML (8.6-58.9) L Thyroid Stimulating Hormone (TSH) 0.681 uiU/mL (0.358-3.740) Ovidio Brito MD Feb 20, 2018 08:30
[2018-02-20] MEDS ORDERED: Heparin 5000 units/ml inj SUBQ SCH (09:00)
--- NOTE | 2018-02-20 09:03 | Diagnostic Imaging Report ---
Indication: Shortness of breath Technique: One view of the chest Comparison: none Findings: Body habitus limits evaluation. The patient is somewhat rotated. Apparent hazy opacities of both hemithoraces, right greater than left, may reflect pulmonary edema or may just be artifact of overlying soft tissue there does appear to be pleural fluid on the left. Impression: Probable left pleural effusion Hazy apparent parenchymal opacity, could be an artifact of overlying soft tissue. Correlate with clinical findings
--- NOTE | 2018-02-20 09:37 | Diagnostic Imaging Report ---
Indication: Post line placement Technique: One view of the chest Comparison: 3 hours earlier Findings: Interim placement of a right jugular central venous catheter, tip which projects at the level of the cavoatrial junction. Interim placement of a right jugular temporary dialysis catheter, tip which projects in the high right atrium the right hemithorax appears less opacified than previously, probably due to differences in positioning and decreased overlying soft tissue. The left hemithorax is not well imaged Impression: satisfactory positions of right jugular central venous catheter and right jugular temporary dialysis catheter. No radiographically evident complication
--- NOTE | 2018-02-20 10:09 | Consultation ---
Consult Note Consult Note Hematology Consult TABATHA BOUDREAUX: Nisha Stewart DOS: 02/20/18 RFC: anemia eval, thrombocytopenia HPI Mr. Lopez is a very pleasant 57 yo male with hx of severe obesity, ONELIA, CKD, and NIDDM. He presents with severe generalized weakness for 3 weeks. Worse today. Unable to get up and stand on his own. He has been dieting recently. He is only eating vegetables and drinking water. He also been using laxatives which has caused diffuse diarrhea. He's had bilateral hip pain for several weeks since being bedbound. He denies fever. Denies abdominal pain. Denies chest pain. Ct elevated at baseline, pending eval with renal today for potential HD Medications Amlodipine 10 mg Aspirin 325 mg benazepril 20 mg Glyburide 5 mg Metformin 750 mg Isosorbide 10 mg Albuterol Allergies: Coded Allergies: No Known Allergies (Unverified , 02/19/18) Nursing Documentation-[facility] Past Medical History: No History, Except For Hx Cardiac Problems: Yes - CHF Hx Hypertension: Yes Hx Diabetes: Yes - type 2 ER ROS - General Review of Systems Constitutional: Reports: malaise continues to persist Respiratory: Denies: cough Cardiovascular: Denies: chest pain Gastrointestinal: Reports: diarrhea; Denies: abdominal pain, melena, hematemesis Musculoskeletal: Reports: back pain, muscle pain All Other Systems: negative except mentioned in HPI ER Physical Exam - General Physical Exam Vital Signs Date Time Temp Pulse Resp B/P (MAP) Pulse Ox O2 Delivery O2 Flow Rate FiO2 02/19/18 17:37 98.4 64 16 77/55 99 Room Air 98.4 02/19/18 17:45 2.0 02/19/18 19:20 28 Sp02 EP Interpretation: reviewed, normal General Appearance: alert, non-toxic, mild distress, other - pale clammy Head: normocephalic, atraumatic Eyes: bilateral eye normal inspection, bilateral eye PERRL ENT: hearing grossly normal, normal pharynx, no angioedema, normal voice, dry mucus membranes Neck: full range of motion, supple/symm/no masses Respiratory: chest non-tender, lungs clear, normal breath sounds, speaking full sentences Cardiovascular #1: regular rate, rhythm, no murmur Cardiovascular #2: 1+ radial (R), 1+ radial (L) Gastrointestinal: normal bowel sounds, non tender, soft, no guarding, no rebound Rectal: normal exam, normal rectal tone Musculoskeletal: back normal, normal range of motion, non-tender Neurologic: alert, oriented x3, responsive Psychiatric: judgement/insight normal Skin: normal color, no rash, warm/dry Lymphatic: no adenopathy Labs Test 02/19/18 17:55 02/19/18 19:54 02/19/18 21:44 White Blood Count 6.8 K/UL (4.8-10.8) Red Blood Count 2.80 M/UL (4.70-6.10) Hemoglobin 8.5 G/DL (14.2-18.0) Hematocrit 24.3 % (42.0-52.0) Mean Corpuscular Volume 87 FL (80-99) Mean Corpuscular Hemoglobin 30.5 PG (27.0-31.0) Mean Corpuscular Hemoglobin Concent 35.1 G/DL (32.0-36.0) Red Cell Distribution Width 13.8 % (11.6-14.8) Platelet Count 60 K/UL (150-450) Mean Platelet Volume 6.5 FL (6.5-10.1) Neutrophils (%) (Auto) % (45.0-75.0) Lymphocytes (%) (Auto) % (20.0-45.0) Monocytes (%) (Auto) % (1.0-10.0) Eosinophils (%) (Auto) % (0.0-3.0) Basophils (%) (Auto) % (0.0-2.0) Differential Total Cells Counted 100 Neutrophils % (Manual) 49 % (45-75) Lymphocytes % (Manual) 38 % (20-45) Monocytes % (Manual) 10 % (1-10) Eosinophils % (Manual) 2 % (0-3) Basophils % (Manual) 1 % (0-2) Band Neutrophils 0 % (0-8) Platelet Estimate Decreased Platelet Morphology Normal Hypochromasia 1+ Anisocytosis 1+ Sodium Level 129 MMOL/L (136-145) Potassium Level 7.8 MMOL/L (3.5-5.1) Chloride Level 96 MMOL/L (98-107) Carbon Dioxide Level 21 MMOL/L (21-32) Anion Gap 11 mmol/L (5-15) Blood Urea Nitrogen 82 mg/dL (7-18) Creatinine 9.6 MG/DL (0.55-1.30) Estimat Glomerular Filtration Rate 6.9 mL/min (>60) Glucose Level 86 MG/DL (74-106) Lactic Acid Level 1.50 mmol/L (0.4-2.0) Calcium Level 10.9 MG/DL (8.5-10.1) Total Bilirubin 0.6 MG/DL (0.2-1.0) Aspartate Amino Transf (AST/SGOT) 37 U/L (15-37) Alanine Aminotransferase (ALT/SGPT) 151 U/L (12-78) Alkaline Phosphatase 57 U/L (46-116) Total Creatine Kinase 335 U/L (26-308) Troponin I 0.000 ng/mL (0.000-0.056) Total Protein 6.8 G/DL (6.4-8.2) Albumin 4.1 G/DL (3.4-5.0) Globulin 2.7 g/dL Albumin/Globulin Ratio 1.5 (1.0-2.7) Urine Color Yellow Urine Appearance Clear Urine pH 5 (4.5-8.0) Urine Specific [place] 1.015 (1.005-1.035) Urine Protein 2+ (NEGATIVE) Urine Glucose (UA) Negative (NEGATIVE) Urine Ketones Negative (NEGATIVE) Urine Occult Blood 2+ (NEGATIVE) Urine Nitrite Negative (NEGATIVE) Urine Bilirubin 1+ (NEGATIVE) Urine Ictotest Negative (NEGATIVE) Urine Urobilinogen Normal MG/DL (0.0-1.0) Urine Leukocyte Esterase 1+ (NEGATIVE) Urine RBC 5-10 /HPF (0 - 0) Urine WBC 2-4 /HPF (0 - 0) Urine Squamous Epithelial Cells None /LPF (NONE/OCC) Urine Bacteria Few /HPF (NONE) Arterial Blood pH 7.333 (7.350-7.450) Arterial Blood Partial Pressure CO2 29.3 mmHg (35.0-45.0) Arterial Blood Partial Pressure O2 40.5 mmHg (75.0-100.0) Arterial Blood HCO3 15.2 mmol/L (22.0-26.0) Arterial Blood Oxygen Saturation 71.9 % (92.0-98.0) Arterial Blood Base Excess -9.7 Doyle Test Positive EKG Diagnostic Results Rate: bradycardiac Rhythm: other - sinus bradycardia ST Segments: other - right bundle branch block, wide QRS Other Impression Assessment and Recs: # Thrombocytopenia - currently plt at 50k, potentially related to infection versus chronic --> hepatitis and hiv ordered to eval --> us of the abd ordered ro hsm and cirrhosis # Anemia of kidney disease/chronic disease --> anemia panel has been ordered --> transfuse to hgb >7 --> consider iron and epo depending on what anemia panel shows --> begin on iv iron for total of 5 doses --> begin folic acid 1mg po daily # Acute on chronic renal failure with VTIOR (acute kidney injury) --> may need HD as per nephrology to eval # Hyperkalemia has received kayxelate # Obesity hypoventilation syndrome # Diabetes # Morbid obesity GREATLY APPRECIATE CONSULTATION Octaviano Vizcaino MD Feb 20, 2018 10:09
--- NOTE | 2018-02-20 10:58 | Operative Note - Dictated ---
DATE OF OPERATION: 02/19/2018 PREOPERATIVE DIAGNOSES: 1. Hypotension. 2. Sepsis. 3. Renal insufficiency. 4. Severe hyperkalemia. 5. Shock. 6. Hypoglycemia. POSTOPERATIVE DIAGNOSES: 1. Hypotension. 2. Sepsis. 3. Renal insufficiency. 4. Severe hyperkalemia. 5. Shock. 6. Hypoglycemia. OPERATION PERFORMED: 1. Right internal jugular temporary hemodialysis catheter placement. 2. Right internal jugular triple-lumen central venous catheter insertion. ATTENDING SURGEON: Iain Santiago M.D. TWO WAY RADIO INSTALLER: None. ANESTHESIOLOGIST: None. ANESTHESIA: Local. ESTIMATED BLOOD LOSS: Minimal. IV FLUIDS: None. COMPLICATIONS: None. WOUND CLASSIFICATION: Class I. SPECIMENS: None. INDICATIONS FOR PROCEDURE: This is a 57-year-old male who was brought in by [facility] to the emergency department of [facility] with complaints of dizziness, weakness, malaise, fatigue, and worsening condition and required transport to the emergency department for evaluation. The patient was noted to be hypoglycemic initially, which was managed and following in the emergency department was noted to be anemic, renal insufficiency with creatinine 9.6 and BUN 82, very concerning potassium of 7.8 with potential EKG changes, hyponatremia, hypochloremic, and in a shock state with occasional confusion and significant discomfort. The patient was hypotensive with systolic blood pressure in the 70s and diastolic blood pressures in the 40s in the emergency department. Given the above, the patient required, one, temporary dialysis catheter for urgent dialysis given his hyperkalemia, renal insufficiency, and potential EKG changes, and, second, a central venous catheter for fluid resuscitation and pressors. The patient's body habitus was morbidly obese and line insertion was very difficult. Surgery was called to assist with line placement. Risks, benefits, and alternatives were discussed with the patient and his family at the bedside. After explaining all the risks, benefits, and alternatives, consent was obtained. PROCEDURE NOTE: The patient was made comfortable at the bedside in the emergency department for urgent procedure. Given the patient's body habitus and above comorbidities, subclavian line was not recommended and given the patient's habitus, an internal jugular line was chosen as desired place for position. Given the patient needed both a hemodialysis catheter and a triple lumen for the above given reasons, a double stick was planned for the right neck. Ultrasound was used and identified a good right internal jugular vein without any clot or abnormality for insertion. A time-out was taken. The right neck was prepped and draped in standard surgical fashion. All participants were wearing sterile gloves and gowns, hairnets, and mask. Ultrasound probe and sterile cover was placed. The right internal jugular was identified and local anesthetic was infiltrated in the proposed needle stick area points. Once appropriate anesthetic effect was achieved, the right internal jugular vein proximally was cannulated with the finder needle and good venous flow back was identified. A guidewire was placed through the needle and the needle removed. Guidewire was left in place and under ultrasound guidance was identified to be in the right internal jugular vein. Following this, a more distal portion of the right internal jugular vein was identified and in a similar fashion using ultrasound guidance, the right internal jugular vein was cannulated again with a finder needle and a guidewire was placed over the needle and needle was removed. Both guidewires were identified under ultrasound guidance to be within the internal jugular vein. Following this, a small incision was made around both guidewires. Dilators were used to dilate the tracts and beginning with the temporary hemodialysis catheter, it was inserted over the guidewire without complication. Guidewire was removed and discarded. Following this, the triple-lumen catheter was inserted over guidewire and guidewire was removed and discarded. No complication from insertion of either catheter was identified. All ports of the hemodialysis and triple-lumen catheter were aspirated and flushed easily without complication. The triple-lumen catheter was saline locked and the hemodialysis catheter was heparin locked. Of note, the patient was placed in Trendelenburg position at the beginning of the procedure. Once this was completed, both catheters were sutured to place using the provided 2-0 silk sutures and dressings were then applied. Chest x-ray was obtained to identify proper positioning of the catheters. Iain Santiago M.D. DR: Matheus JOB#: [id number] CC: RAÚL
[2018-02-20 11:00] LABS: % IRON SATURATION 36 % (15-50); IRON 90 ug/dL (50-175); TOTAL IRON BINDING CAPACITY 248 ug/dL (250-450)
[2018-02-20] MEDS ORDERED: Sodium Polystyrene Sulfonate 15gm Powder ORAL SCH ×2 (11:00→18:00)
--- NOTE | 2018-02-20 11:05 | Nephrology Progress Note ---
Assessment/Plan Problem List: (1) VITOR (acute kidney injury) (2) Dehydration (3) Hyperkalemia (4) Hypotension (5) ONELIA (obstructive sleep apnea) (6) Morbid obesity (7) Anemia (8) Diabetes Assessment acute renal failure- (on Glucophage- Lotensin), Hypotension underlying chronic renal failure- morbid obesity- DM Hypotension HyperKalemia ONELIA Anemia Plan IV fluid- Dialysis - done once- will do again ICU setting Keep BP over 90 syst Anemia mehta, B12- Folate- Iron- Transfuse avoid nephrotoxics change IV to D5NS Subjective ROS Limited/Unobtainable: No Constitutional: Reports: malaise, weakness Objective Objective Last 24 Hour Vital Signs Date Time Temp Pulse Resp B/P (MAP) Pulse Ox O2 Delivery O2 Flow Rate FiO2 02/20/18 08:00 84 18 Venturi Mask 15.0 50 02/20/18 08:00 Venturi Mask 15.0 50 02/20/18 07:00 82 23 107/50 (69) 100 02/20/18 07:00 Venturi Mask 02/20/18 07:00 Venturi Mask 02/20/18 06:00 81 26 107/51 (69) 100 02/20/18 05:00 76 20 95/32 (53) 100 02/20/18 04:00 50 02/20/18 04:00 95.4 74 20 101/36 (57) 100 95.4 02/20/18 04:00 Venturi Mask 15.0 02/20/18 03:57 76 02/20/18 03:30 76 20 100/39 (59) 100 02/20/18 03:00 77 17 76/36 (49) 100 02/20/18 02:53 Venturi Mask 13.5 02/20/18 02:44 94.7 79 20 80/39 (53) 94.7 02/20/18 02:00 73 17 61/26 (38) 100 02/20/18 01:00 71 16 74/33 (47) 100 02/20/18 00:22 71 02/20/18 00:00 69 15 73/50 (58) 100 02/20/18 00:00 50 02/20/18 00:00 Venturi Mask 15.0 02/19/18 23:30 74 22 104/44 (64) 100 02/19/18 23:00 93.9 72 20 99/95 (96) 93.9 02/19/18 23:00 Venturi Mask 13.5 02/19/18 23:00 72 19 92/35 (54) 100 02/19/18 22:59 Venturi Mask 15.0 50 02/19/18 22:59 66 20 Venturi Mask 15.0 50 02/19/18 22:45 73 19 100/44 (62) 100 02/19/18 22:30 94.7 74 20 96/49 (65) 98 94.7 02/19/18 22:17 82 02/19/18 22:16 93.9 76 20 84/51 (62) 98 93.9 02/19/18 22:15 Nasal Cannula 2.0 02/19/18 22:13 98.4 65 20 95/34 100 Nasal Cannula 2.0 28 98.4 02/19/18 22:13 98.4 69 20 93/30 100 Nasal Cannula 2.0 28 98.4 02/19/18 22:10 98.4 69 20 93/30 100 Nasal Cannula 2.0 28 98.4 02/19/18 19:45 98.4 69 20 93/30 100 Nasal Cannula 2.0 28 98.4 02/19/18 19:30 98.2 64 22 87/28 100 Nasal Cannula 2.0 28 98.2 02/19/18 19:27 60 20 100 Nasal Cannula 2.0 28 02/19/18 19:21 52 19 100 Nasal Cannula 2.0 28 02/19/18 19:20 57 19 Nasal Cannula 2.0 28 02/19/18 19:20 Nasal Cannula 2.0 28 02/19/18 19:15 57 19 91/38 100 Nasal Cannula 2.0 02/19/18 19:10 57 19 91/43 100 Nasal Cannula 2.0 02/19/18 19:00 60 19 87/37 100 Nasal Cannula 2.0 02/19/18 19:00 58 19 92/43 100 Nasal Cannula 2.0 02/19/18 18:30 58 17 88/56 100 Nasal Cannula 2.0 02/19/18 17:45 98.4 56 16 77/55 100 Nasal Cannula 2.0 98.4 02/19/18 17:45 58 19 Nasal Cannula 2.0 02/19/18 17:37 98.4 64 16 77/55 99 Room Air 98.4 Intake and Output 02/19/18 02/20/18 19:00 07:00 Intake Total 2110 ml Output Total 120 ml Balance 1990 ml Intake Oral 200 ml IV Total 1910 ml Output Urine Total 120 ml Hemodialysis UF 0 ml # Voids 1 Laboratory Tests 02/19/18 17:55: White Blood Count 6.8, Red Blood Count 2.80L, Hemoglobin 8.5L, Hematocrit 24.3L , Mean Corpuscular Volume 87, Mean Corpuscular Hemoglobin 30.5, Mean Corpuscular Hemoglobin Concent 35.1, Red Cell Distribution Width 13.8, Platelet Count 60L, Mean Platelet Volume 6.5, Neutrophils (%) (Auto) , Lymphocytes (%) ( Auto) , Monocytes (%) (Auto) , Eosinophils (%) (Auto) , Basophils (%) (Auto) , Differential Total Cells Counted 100, Neutrophils % (Manual) 49, Lymphocytes % ( Manual) 38, Monocytes % (Manual) 10, Eosinophils % (Manual) 2, Basophils % ( Manual) 1, Band Neutrophils 0, Platelet Estimate DecreasedL, Platelet Morphology Normal, Hypochromasia 1+, Anisocytosis 1+, Sodium Level 129L, Potassium Level 7.8*H, Chloride Level 96L, Carbon Dioxide Level 21, Anion Gap 11 , Blood Urea Nitrogen 82H, Creatinine 9.6H, Estimat Glomerular Filtration Rate 6.9, Glucose Level 86, Lactic Acid Level 1.50, Calcium Level 10.9H, Total Bilirubin 0.6, Aspartate Amino Transf (AST/SGOT) 37, Alanine Aminotransferase ( ALT/SGPT) 151H, Alkaline Phosphatase 57, Total Creatine Kinase 335H, Troponin I 0.000, Total Protein 6.8, Albumin 4.1, Globulin 2.7, Albumin/Globulin Ratio 1.5 02/19/18 19:54: Urine Color Yellow, Urine Appearance Clear, Urine pH 5, Urine Specific [place] 1.015, Urine Protein 2+H, Urine Glucose (UA) Negative, Urine Ketones Negative, Urine Occult Blood 2+H, Urine Nitrite Negative, Urine Bilirubin 1+H, Urine Ictotest Negative, Urine Urobilinogen Normal, Urine Leukocyte Esterase 1+H, Urine RBC 5-10H, Urine WBC 2-4, Urine Squamous Epithelial Cells None, Urine Bacteria Few 02/19/18 21:44: Arterial Blood pH 7.333L, Arterial Blood Partial Pressure CO2 29.3L, Arterial Blood Partial Pressure O2 40.5*L, Arterial Blood HCO3 15.2L, Arterial Blood Oxygen Saturation 71.9L, Arterial Blood Base Excess -9.7, Doyle Test Positive 02/20/18 04:40: White Blood Count 6.3, Red Blood Count 2.36L, Hemoglobin 7.0L, Hematocrit 20.2L , Mean Corpuscular Volume 86, Mean Corpuscular Hemoglobin 29.9, Mean Corpuscular Hemoglobin Concent 34.8, Red Cell Distribution Width 13.6, Platelet Count 53L, Mean Platelet Volume 6.6, Neutrophils (%) (Auto) , Lymphocytes (%) ( Auto) , Monocytes (%) (Auto) , Eosinophils (%) (Auto) , Basophils (%) (Auto) , Differential Total Cells Counted 100, Neutrophils % (Manual) 45, Lymphocytes % ( Manual) 42, Monocytes % (Manual) 12H, Eosinophils % (Manual) 1, Basophils % ( Manual) 0, Band Neutrophils 0, Platelet Estimate DecreasedL, Platelet Morphology Normal, Hypochromasia 3+, Anisocytosis 1+, Sodium Level 132L, Potassium Level 7.1*H, Chloride Level 101, Carbon Dioxide Level 20L, Anion Gap 12, Blood Urea Nitrogen 78H, Creatinine 8.8H, Estimat Glomerular Filtration Rate 7.6, Glucose Level 25*L, Calcium Level 9.6, Total Bilirubin 0.5, Aspartate Amino Transf (AST/SGOT) 36, Alanine Aminotransferase (ALT/SGPT) 132H, Alkaline Phosphatase 45L, Troponin I 0.172H, Total Protein 5.8L, Albumin 3.5, Globulin 2.3, Albumin/Globulin Ratio 1.5, Nucleated Red Blood Cells 2, Spherocytes 2+, Reticulocyte Count [Pending], Haptoglobin [Pending], Hemoglobin A1c 6.3H, Uric Acid 21.4H, Phosphorus Level 5.1H, Magnesium Level 1.9, Iron Level 84, Total Iron Binding Capacity 236L, Percent Iron Saturation 36, Unsaturated Iron Binding 152, Ferritin 494H, Gamma Glutamyl Transpeptidase 314H, C-Reactive Protein, Quantitative < 0.4, Pro-B-Type Natriuretic Peptide 751H, Triglycerides Level 64, Cholesterol Level 123, LDL Cholesterol 72, HDL Cholesterol 39L, Cholesterol/HDL Ratio 3.2L, Vitamin B12 Level 341, Folate 4.9L, Thyroid Stimulating Hormone (TSH) 0.681 02/20/18 09:00: Iron Level 90, Total Iron Binding Capacity 248L, Percent Iron Saturation 36, Unsaturated Iron Binding 158, Ferritin [Pending], Lactate Dehydrogenase [Pending ], Vitamin B12 Level [Pending], Folate [Pending], HIV (1&2) Antibody Rapid Negative 02/20/18 09:50: Arterial Blood pH 7.192*L, Arterial Blood Partial Pressure CO2 46.0H, Arterial Blood Partial Pressure O2 132.7H, Arterial Blood HCO3 17.3L, Arterial Blood Oxygen Saturation 97.2, Arterial Blood Base Excess -10.2, Doyle Test Positive Height (Feet): 5 Height (Inches): 11.00 Weight (Pounds): 385 General Appearance: mild distress Cardiovascular: normal rate Respiratory/Chest: decreased breath sounds Abdomen: other - obese Extremities: other - no edema Addison Sparks MD Feb 20, 2018 11:05
[2018-02-20] MEDS: Pantoprazole Inj IVP SCH ×2 (11:08→21:50)
[2018-02-20] MEDS: Piperacillin/Tazobactam 2.25 GM in NS 110 ML IVPB SCH ×2 (11:08→21:51)
[2018-02-20] MEDS: D5NS 1,000 ML IV SCH ×3 (11:36→21:50)
[2018-02-20] MEDS: Albuterol/Ipratropium 3ml neb HHN SCH ×2 (12:56→19:00)
[2018-02-20] MEDS ORDERED: Vitamin B12 1000mcg/ml Inj IM SCH (13:00)
[2018-02-20] MEDS ORDERED: Iron Sucrose 200 MG in NS 50 ML IV ONE (13:00)
--- NOTE | 2018-02-20 14:32 | Diagnostic Imaging Report ---
Indication: Acute renal failure Technique: Grayscale and duplex images of the kidneys, retroperitoneum, and bladder were obtained. Comparison: none Findings: Exam is somewhat limited due to patient body habitus. Right kidney measures 12 cm in length. Left kidney measures 11.5 cm in length. Both kidneys demonstrate normal echogenicity. There is mild fullness to the right renal collecting system but no samia hydronephrosis. No left hydronephrosis. There is a 2.4 cm cyst in the right upper pole. Normal inferior vena cava. Bladder is empty, contains a Gallegos catheter. Incidentally noted are gallstones Impression: Mild right renal collecting system fullness without samia hydronephrosis No left hydronephrosis Empty bladder with a Gallegos catheter Incidental finding right upper pole renal cyst Gallstones incidentally noted.
--- NOTE | 2018-02-20 15:32 | Cardiology Report ---
APPROVED REPORT EXAM: Two-dimensional and M-mode echocardiogram with Doppler and color Doppler. M-Mode DIMENSIONS IVSd1.5 (0.7-1.1cm)Left Atrium (MM)4.0 (1.6-4.0cm) LVDd4.4 (3.5-5.6cm)Aortic Root3.3 (2.0-3.7cm) PWd1.8 (0.7-1.1cm)Aortic Cusp Exc.1.9 (1.5-2.0cm) IVSs2.3 cm LVDs2.6 (2.5-4.0cm) PWs2.1 cm window Normal left ventricular chamber size, systolic function and wall motion to the extent visualized Left ventricular ejection fraction estimated to be 60-65%. No evidence of left ventricular hypertrophy . No evidence pericardial effusion. All other cardiac chamber sizes are within normal limits. Focal aortic valve sclerosis with adequate cusp excursion. Thickened mitral valve leaflets with normal excursion. Mitral annulus and aortic root calcification. Pulmonic valve not well visualized. Normal tricuspid valve structure. IVC at size 2.0 with physiologic collapse. A color flow and spectral Doppler study was performed and revealed: No aortic regurgitation. Trace mitral regurgitation. Trace tricuspid regurgitation. Tricuspid systolic velocities suggests peak right ventricular systolic pressure of 23mmHg
--- NOTE | 2018-02-20 15:35 | Cardiology Report ---
APPROVED REPORT EKG Measurement Heart [id number] MD [id number] Sinus bradycardia Right bundle branch block T wave abnormality, consider lateral ischemia Abnormal ECG
--- NOTE | 2018-02-20 15:54 | Infectious Diseases Prog Note ---
Assessment/Plan Problems: (1) Septic shock Assessment & Plan: with hypotension and respiratory failure, will start patient on zosyn and daptomycin pending blood culture results, continue hydration and pressors as needed. will deescalate his antibiotics based on his culture results (2) Dehydration Assessment & Plan: continue ivf and transfuse blood products as need for blood pressure support (3) Hyperkalemia (4) Diabetes Assessment & Plan: recommend tight glycemic control to keep blood glucose between 100-140 (5) VITOR (acute kidney injury) Assessment & Plan: with uremia and metabolic acidosis , started on HD as per renal. (6) Thrombocytopenia Assessment & Plan: suspect due to sepsis , monitor platelets, hematology is following, avoid heparin products (7) Acute respiratory failure with hypoxemia Assessment & Plan: due to the above , on BIPAP , still acidotic , pulmonary is following , monitor ABG Subjective Allergies: Coded Allergies: No Known Allergies (Unverified , 02/19/18) Objective Vital Signs Last 24 Hour Vital Signs Date Time Temp Pulse Resp B/P (MAP) Pulse Ox O2 Delivery O2 Flow Rate FiO2 02/20/18 14:52 80 26 97 Facial 25 02/20/18 14:00 78 16 90/34 (52) 94 02/20/18 13:06 77 23 100 Bi-pap 25 02/20/18 13:00 25 02/20/18 13:00 78 16 100/38 (58) 96 02/20/18 12:56 74 22 100 Bi-pap 25 02/20/18 12:55 77 22 100 Facial 25 02/20/18 12:00 30 02/20/18 12:00 Nasal Cannula 2.0 02/20/18 12:00 98.5 79 23 111/29 (56) 98 98.5 02/20/18 11:30 77 28 99 Facial 30 02/20/18 11:18 30 02/20/18 11:00 84 23 103/49 (67) 97 02/20/18 10:00 88 23 117/40 (65) 99 02/20/18 09:00 85 24 104/43 (63) 100 02/20/18 08:00 84 18 Venturi Mask 15.0 50 02/20/18 08:00 Venturi Mask 15.0 50 02/20/18 08:00 Nasal Cannula 2.0 02/20/18 08:00 98.0 84 22 102/40 (60) 100 98.0 02/20/18 07:00 82 23 107/50 (69) 100 02/20/18 07:00 Venturi Mask 02/20/18 07:00 Venturi Mask 02/20/18 06:00 81 26 107/51 (69) 100 02/20/18 05:00 76 20 95/32 (53) 100 02/20/18 04:00 50 02/20/18 04:00 95.4 74 20 101/36 (57) 100 95.4 02/20/18 04:00 Venturi Mask 15.0 02/20/18 03:57 76 02/20/18 03:30 76 20 100/39 (59) 100 02/20/18 03:00 77 17 76/36 (49) 100 02/20/18 02:53 Venturi Mask 13.5 02/20/18 02:44 94.7 79 20 80/39 (53) 94.7 02/20/18 02:00 73 17 61/26 (38) 100 02/20/18 01:00 71 16 74/33 (47) 100 02/20/18 00:22 71 02/20/18 00:00 69 15 73/50 (58) 100 02/20/18 00:00 50 02/20/18 00:00 Venturi Mask 15.0 02/19/18 23:30 74 22 104/44 (64) 100 02/19/18 23:00 93.9 72 20 99/95 (96) 93.9 02/19/18 23:00 Venturi Mask 13.5 02/19/18 23:00 72 19 92/35 (54) 100 02/19/18 22:59 Venturi Mask 15.0 50 02/19/18 22:59 66 20 Venturi Mask 15.0 50 02/19/18 22:45 73 19 100/44 (62) 100 02/19/18 22:30 94.7 74 20 96/49 (65) 98 94.7 02/19/18 22:17 82 02/19/18 22:16 93.9 76 20 84/51 (62) 98 93.9 02/19/18 22:15 Nasal Cannula 2.0 02/19/18 22:13 98.4 65 20 95/34 100 Nasal Cannula 2.0 28 98.4 02/19/18 22:13 98.4 69 20 93/30 100 Nasal Cannula 2.0 28 98.4 02/19/18 22:10 98.4 69 20 93/30 100 Nasal Cannula 2.0 28 98.4 02/19/18 19:45 98.4 69 20 93/30 100 Nasal Cannula 2.0 28 98.4 02/19/18 19:30 98.2 64 22 87/28 100 Nasal Cannula 2.0 28 98.2 02/19/18 19:27 60 20 100 Nasal Cannula 2.0 28 02/19/18 19:21 52 19 100 Nasal Cannula 2.0 28 02/19/18 19:20 57 19 Nasal Cannula 2.0 28 02/19/18 19:20 Nasal Cannula 2.0 28 02/19/18 19:15 57 19 91/38 100 Nasal Cannula 2.0 02/19/18 19:10 57 19 91/43 100 Nasal Cannula 2.0 02/19/18 19:00 60 19 87/37 100 Nasal Cannula 2.0 02/19/18 19:00 58 19 92/43 100 Nasal Cannula 2.0 02/19/18 18:30 58 17 88/56 100 Nasal Cannula 2.0 02/19/18 17:45 98.4 56 16 77/55 100 Nasal Cannula 2.0 98.4 02/19/18 17:45 58 19 Nasal Cannula 2.0 02/19/18 17:37 98.4 64 16 77/55 99 Room Air 98.4 Height (Feet): 5 Height (Inches): 11.00 Weight (Pounds): 385 Microbiology Date/Time Source Procedure Growth Status 02/19/18 19:54 Rectum Received Laboratory Tests Test 02/19/18 17:55 02/19/18 19:54 02/19/18 21:44 02/20/18 04:00 White Blood Count 6.8 K/UL (4.8-10.8) Red Blood Count 2.80 M/UL (4.70-6.10) L Hemoglobin 8.5 G/DL (14.2-18.0) L Hematocrit 24.3 % (42.0-52.0) L Mean Corpuscular Volume 87 FL (80-99) Mean Corpuscular Hemoglobin 30.5 PG (27.0-31.0) Mean Corpuscular Hemoglobin Concent 35.1 G/DL (32.0-36.0) Red Cell Distribution Width 13.8 % (11.6-14.8) Platelet Count 60 K/UL (150-450) L Mean Platelet Volume 6.5 FL (6.5-10.1) Neutrophils (%) (Auto) % (45.0-75.0) Lymphocytes (%) (Auto) % (20.0-45.0) Monocytes (%) (Auto) % (1.0-10.0) Eosinophils (%) (Auto) % (0.0-3.0) Basophils (%) (Auto) % (0.0-2.0) Differential Total Cells Counted 100 Neutrophils % (Manual) 49 % (45-75) Lymphocytes % (Manual) 38 % (20-45) Monocytes % (Manual) 10 % (1-10) Eosinophils % (Manual) 2 % (0-3) Basophils % (Manual) 1 % (0-2) Band Neutrophils 0 % (0-8) Platelet Estimate Decreased L Platelet Morphology Normal Hypochromasia 1+ Anisocytosis 1+ Sodium Level 129 MMOL/L (136-145) L Potassium Level 7.8 MMOL/L (3.5-5.1) *H Chloride Level 96 MMOL/L (98-107) L Carbon Dioxide Level 21 MMOL/L (21-32) Anion Gap 11 mmol/L (5-15) Blood Urea Nitrogen 82 mg/dL (7-18) H Creatinine 9.6 MG/DL (0.55-1.30) H Estimat Glomerular Filtration Rate 6.9 mL/min (>60) Glucose Level 86 MG/DL (74-106) Lactic Acid Level 1.50 mmol/L (0.4-2.0) Calcium Level 10.9 MG/DL (8.5-10.1) H Total Bilirubin 0.6 MG/DL (0.2-1.0) Aspartate Amino Transf (AST/SGOT) 37 U/L (15-37) Alanine Aminotransferase (ALT/SGPT) 151 U/L (12-78) H Alkaline Phosphatase 57 U/L (46-116) Total Creatine Kinase 335 U/L (26-308) H Troponin I 0.000 ng/mL (0.000-0.056) Total Protein 6.8 G/DL (6.4-8.2) Albumin 4.1 G/DL (3.4-5.0) Globulin 2.7 g/dL Albumin/Globulin Ratio 1.5 (1.0-2.7) Urine Color Yellow Urine Appearance Clear Urine pH 5 (4.5-8.0) Urine Specific Ariel 1.015 (1.005-1.035) Urine Protein 2+ (NEGATIVE) H Urine Glucose (UA) Negative (NEGATIVE) Urine Ketones Negative (NEGATIVE) Urine Occult Blood 2+ (NEGATIVE) H Urine Nitrite Negative (NEGATIVE) Urine Bilirubin 1+ (NEGATIVE) H Urine Ictotest Negative (NEGATIVE) Urine Urobilinogen Normal MG/DL (0.0-1.0) Urine Leukocyte Esterase 1+ (NEGATIVE) H Urine RBC 5-10 /HPF (0 - 0) H Urine WBC 2-4 /HPF (0 - 0) Urine Squamous Epithelial Cells None /LPF (NONE/OCC) Urine Bacteria Few /HPF (NONE) Arterial Blood pH 7.333 (7.350-7.450) Arterial Blood Partial Pressure CO2 29.3 mmHg (35.0-45.0) L Arterial Blood Partial Pressure O2 40.5 mmHg (75.0-100.0) Arterial Blood HCO3 15.2 mmol/L (22.0-26.0) L Arterial Blood Oxygen Saturation 71.9 % (92.0-98.0) L Arterial Blood Base Excess -9.7 Doyle Test Positive C-Reactive Protein, Quantitative < 0.4 mg/dL (0.00-0.90) Test 02/20/18 04:40 02/20/18 09:00 02/20/18 09:50 02/20/18 10:50 White Blood Count 6.3 K/UL (4.8-10.8) Red Blood Count 2.36 M/UL (4.70-6.10) L Hemoglobin 7.0 G/DL (14.2-18.0) L Hematocrit 20.2 % (42.0-52.0) L Mean Corpuscular Volume 86 FL (80-99) Mean Corpuscular Hemoglobin 29.9 PG (27.0-31.0) Mean Corpuscular Hemoglobin Concent 34.8 G/DL (32.0-36.0) Red Cell Distribution Width 13.6 % (11.6-14.8) Platelet Count 53 K/UL (150-450) L Mean Platelet Volume 6.6 FL (6.5-10.1) Neutrophils (%) (Auto) % (45.0-75.0) Lymphocytes (%) (Auto) % (20.0-45.0) Monocytes (%) (Auto) % (1.0-10.0) Eosinophils (%) (Auto) % (0.0-3.0) Basophils (%) (Auto) % (0.0-2.0) Differential Total Cells Counted 100 Neutrophils % (Manual) 45 % (45-75) Lymphocytes % (Manual) 42 % (20-45) Monocytes % (Manual) 12 % (1-10) H Eosinophils % (Manual) 1 % (0-3) Basophils % (Manual) 0 % (0-2) Band Neutrophils 0 % (0-8) Nucleated Red Blood Cells 2 /100 WBC Platelet Estimate Decreased L Platelet Morphology Normal Hypochromasia 3+ Anisocytosis 1+ Spherocytes 2+ Reticulocyte Count 1.3 % (0.0-2.0) Haptoglobin Pending Sodium Level 132 MMOL/L (136-145) L Potassium Level 7.1 MMOL/L (3.5-5.1) *H Chloride Level 101 MMOL/L (98-107) Carbon Dioxide Level 20 MMOL/L (21-32) L Anion Gap 12 mmol/L (5-15) Blood Urea Nitrogen 78 mg/dL (7-18) H Creatinine 8.8 MG/DL (0.55-1.30) H Estimat Glomerular Filtration Rate 7.6 mL/min (>60) Glucose Level 25 MG/DL (74-106) *L Hemoglobin A1c 6.3 % (4.3-6.0) H Uric Acid 21.4 MG/DL (2.6-7.2) H Calcium Level 9.6 MG/DL (8.5-10.1) Phosphorus Level 5.1 MG/DL (2.5-4.9) H Magnesium Level 1.9 MG/DL (1.8-2.4) Iron Level 84 ug/dL (50-175) 90 ug/dL (50-175) Total Iron Binding Capacity 236 ug/dL (250-450) L 248 ug/dL (250-450) L Percent Iron Saturation 36 % (15-50) 36 % (15-50) Unsaturated Iron Binding 152 ug/dL (112-346) 158 ug/dL (112-346) Ferritin 494 NG/ML (8-388) H 611 NG/ML (8-388) H Total Bilirubin 0.5 MG/DL (0.2-1.0) Gamma Glutamyl Transpeptidase 314 U/L (5-85) H Aspartate Amino Transf (AST/SGOT) 36 U/L (15-37) Alanine Aminotransferase (ALT/SGPT) 132 U/L (12-78) H Alkaline Phosphatase 45 U/L (46-116) L Troponin I 0.172 ng/mL (0.000-0.056) C-Reactive Protein, Quantitative < 0.4 mg/dL (0.00-0.90) Pro-B-Type Natriuretic Peptide 751 pg/mL (0-125) H Total Protein 5.8 G/DL (6.4-8.2) L Albumin 3.5 G/DL (3.4-5.0) Globulin 2.3 g/dL Albumin/Globulin Ratio 1.5 (1.0-2.7) Triglycerides Level 64 MG/DL (30-150) Cholesterol Level 123 MG/DL (< 200) LDL Cholesterol 72 mg/dL (<100) HDL Cholesterol 39 MG/DL (40-60) L Cholesterol/HDL Ratio 3.2 (3.3-4.4) L Vitamin B12 Level 341 PG/ML (193-986) 353 PG/ML (193-986) Folate 4.9 NG/ML (8.6-58.9) L 4.4 NG/ML (8.6-58.9) L Thyroid Stimulating Hormone (TSH) 0.681 uiU/mL (0.358-3.740) Lactate Dehydrogenase 96 U/L (81-234) HIV (1&2) Antibody Rapid Negative (NEGATIVE) Arterial Blood pH 7.192 (7.350-7.450) Arterial Blood Partial Pressure CO2 46.0 mmHg (35.0-45.0) H Arterial Blood Partial Pressure O2 132.7 mmHg (75.0-100.0) H Arterial Blood HCO3 17.3 mmol/L (22.0-26.0) L Arterial Blood Oxygen Saturation 97.2 % (92.0-98.0) Arterial Blood Base Excess -10.2 Doyle Test Positive Stool Occult Blood Negative (NEGATIVE) Test 02/20/18 12:00 02/20/18 13:35 Troponin I 0.083 ng/mL (0.000-0.056) Hepatitis A IgM Antibody Pending Hepatitis B Surface Antigen Pending Hepatitis B Core IgM Antibody Pending Hepatitis C Antibody Pending Arterial Blood pH 7.155 (7.350-7.450) Arterial Blood Partial Pressure CO2 48.5 mmHg (35.0-45.0) H Arterial Blood Partial Pressure O2 84.2 mmHg (75.0-100.0) Arterial Blood HCO3 16.7 mmol/L (22.0-26.0) L Arterial Blood Oxygen Saturation 92.9 % (92.0-98.0) Arterial Blood Base Excess -11.3 Doyle Test Positive Current Medications Medications (Trade) Dose Ordered Sig/Taryn Route PRN Reason Start Time Stop Time Status Last Admin Dose Admin Albuterol/ Ipratropium (Albuterol/ Ipratropium) 3 ml Q4H PRN HHN Shortness of Breath 02/20/18 08:30 02/25/18 08:29 Albuterol/ Ipratropium (Albuterol/ Ipratropium) 3 ml Q6HRT HHN 02/20/18 13:00 02/25/18 12:59 02/20/18 12:56 Allopurinol (Allopurinol) 300 mg DAILY ORAL 02/21/18 09:00 03/23/18 08:59 Chlorhexidine Gluconate (Mimi-Hex 2%) 1 applic DAILY@2000 TOPIC 02/20/18 20:00 03/22/18 19:59 Cyanocobalamin (Vitamin B12) 1,000 mcg DAILY IM 02/20/18 13:00 02/22/18 09:01 02/20/18 14:28 Daptomycin 1000 mg/Sodium Chloride 55 ml @ 100 mls/hr Q48H IV 02/19/18 23:00 02/26/18 22:59 02/20/18 07:20 Dextrose (Dextrose 50%) 25 ml STAT PRN IV Hypoglycemia 02/19/18 22:00 03/21/18 21:59 02/19/18 23:03 Dextrose (Dextrose 50%) 50 ml STAT PRN IV Hypoglycemia 02/19/18 22:00 03/21/18 21:59 02/20/18 07:54 Dextrose/Sodium Chloride 1,000 ml @ 200 mls/hr Q5H IV 02/20/18 11:15 03/22/18 11:14 02/20/18 11:36 Folic Acid (Folate) 5 mg DAILY ORAL 02/21/18 09:00 03/22/18 09:59 Norepinephrine Bitartrate 4 mg/ Dextrose 250 ml @ 0 mls/hr Q24H IV 02/20/18 15:30 03/22/18 15:29 Pantoprazole (Protonix) 40 mg EVERY 12 HOURS IVP 02/20/18 09:00 03/22/18 08:59 02/20/18 11:08 Piperacillin Sod/ Tazobactam Sod 2.25 gm/Sodium Chloride 110 ml @ 220 mls/hr Q12H IVPB 02/19/18 22:00 02/26/18 21:59 02/20/18 11:08 Sodium Polystyrene Sulfonate (Kayexalate) 30 gm ONCE ORAL 02/20/18 18:00 02/20/18 19:00 Neil Brooke M.D. Feb 20, 2018 15:54
--- NOTE | 2018-02-20 16:15 | General Progress Note ---
Assessment/Plan Assessment/Plan S: I am very tired O: appears comfortable. pain is well managed. poor historian. although awake , but demonstrate lack of cognition and memory. PHYSICAL EXAMINATION: HEENT: Head is atraumatic and normocephalic. CHEST: Clear to auscultation. No wheezing. No crackles. HEART: S1 and S2. Regular rate and rhythm. ABDOMEN: Soft. No organomegaly. MUSCULOSKELETAL: No gross lateralized motor deficit. NEUROLOGY: The patient is awake. He has decrease and lack in the memory and lack in the cognition and slow mentation. MUSCULOSKELETAL: No gross focal motor deficit. Medication : reviewed and reconciled in the chart ASSESSMENT: 1. Acute encephalopathy 2. Septic shock, source work in progress 2. Diabetes type 2, uncontrolled with low blood sugar. 3. Noncompliance with medication and treatment advise as an outpatient. 4. Acute on chronic anemia. 5. Abnormal liver function tests. 6. Gastrointestinal and deep vein thrombosis prophylaxes. 7. Hyperkalemia. PLAN OF CARE: I discussed the care in detail with Dr. Sparks. Proceed with HD. current empirical antibiotic regiments. Remains in very serious medical cnd. Endo, Dr Reece consulted and notified. Subjective Allergies: Coded Allergies: No Known Allergies (Unverified , 02/19/18) Objective Last 24 Hour Vital Signs Date Time Temp Pulse Resp B/P (MAP) Pulse Ox O2 Delivery O2 Flow Rate FiO2 02/20/18 15:00 78 25 101/71 (81) 87 02/20/18 14:52 80 26 97 Facial 25 02/20/18 14:00 78 16 90/34 (52) 94 02/20/18 13:06 77 23 100 Bi-pap 25 02/20/18 13:00 25 02/20/18 13:00 78 16 100/38 (58) 96 02/20/18 12:56 74 22 100 Bi-pap 25 02/20/18 12:55 77 22 100 Facial 25 02/20/18 12:00 30 02/20/18 12:00 77 02/20/18 12:00 Nasal Cannula 2.0 02/20/18 12:00 98.5 79 23 111/29 (56) 98 98.5 02/20/18 11:30 77 28 99 Facial 30 02/20/18 11:18 30 02/20/18 11:00 84 23 103/49 (67) 97 02/20/18 10:00 88 23 117/40 (65) 99 02/20/18 09:00 85 24 104/43 (63) 100 02/20/18 08:00 84 18 Venturi Mask 15.0 50 02/20/18 08:00 Venturi Mask 15.0 50 02/20/18 08:00 78 02/20/18 08:00 Nasal Cannula 2.0 02/20/18 08:00 98.0 84 22 102/40 (60) 100 98.0 02/20/18 07:00 82 23 107/50 (69) 100 02/20/18 07:00 Venturi Mask 02/20/18 07:00 Venturi Mask 02/20/18 06:00 81 26 107/51 (69) 100 02/20/18 05:00 76 20 95/32 (53) 100 02/20/18 04:00 50 02/20/18 04:00 95.4 74 20 101/36 (57) 100 95.4 02/20/18 04:00 Venturi Mask 15.0 02/20/18 03:57 76 02/20/18 03:30 76 20 100/39 (59) 100 02/20/18 03:00 77 17 76/36 (49) 100 02/20/18 02:53 Venturi Mask 13.5 02/20/18 02:44 94.7 79 20 80/39 (53) 94.7 02/20/18 02:00 73 17 61/26 (38) 100 02/20/18 01:00 71 16 74/33 (47) 100 02/20/18 00:22 71 02/20/18 00:00 69 15 73/50 (58) 100 02/20/18 00:00 50 02/20/18 00:00 Venturi Mask 15.0 02/19/18 23:30 74 22 104/44 (64) 100 02/19/18 23:00 93.9 72 20 99/95 (96) 93.9 02/19/18 23:00 Venturi Mask 13.5 02/19/18 23:00 72 19 92/35 (54) 100 02/19/18 22:59 Venturi Mask 15.0 50 02/19/18 22:59 66 20 Venturi Mask 15.0 50 02/19/18 22:45 73 19 100/44 (62) 100 02/19/18 22:30 94.7 74 20 96/49 (65) 98 94.7 02/19/18 22:17 82 02/19/18 22:16 93.9 76 20 84/51 (62) 98 93.9 02/19/18 22:15 Nasal Cannula 2.0 02/19/18 22:13 98.4 65 20 95/34 100 Nasal Cannula 2.0 28 98.4 02/19/18 22:13 98.4 69 20 93/30 100 Nasal Cannula 2.0 28 98.4 02/19/18 22:10 98.4 69 20 93/30 100 Nasal Cannula 2.0 28 98.4 02/19/18 19:45 98.4 69 20 93/30 100 Nasal Cannula 2.0 28 98.4 02/19/18 19:30 98.2 64 22 87/28 100 Nasal Cannula 2.0 28 98.2 02/19/18 19:27 60 20 100 Nasal Cannula 2.0 28 02/19/18 19:21 52 19 100 Nasal Cannula 2.0 28 02/19/18 19:20 57 19 Nasal Cannula 2.0 28 02/19/18 19:20 Nasal Cannula 2.0 28 02/19/18 19:15 57 19 91/38 100 Nasal Cannula 2.0 02/19/18 19:10 57 19 91/43 100 Nasal Cannula 2.0 02/19/18 19:00 60 19 87/37 100 Nasal Cannula 2.0 02/19/18 19:00 58 19 92/43 100 Nasal Cannula 2.0 02/19/18 18:30 58 17 88/56 100 Nasal Cannula 2.0 02/19/18 17:45 98.4 56 16 77/55 100 Nasal Cannula 2.0 98.4 02/19/18 17:45 58 19 Nasal Cannula 2.0 02/19/18 17:37 98.4 64 16 77/55 99 Room Air 98.4 Intake and Output 02/19/18 02/20/18 19:00 07:00 Intake Total 2110 ml Output Total 120 ml Balance 1990 ml Intake Oral 200 ml IV Total 1910 ml Output Urine Total 120 ml Hemodialysis UF 0 ml # Voids 1 Laboratory Tests 02/19/18 17:55: White Blood Count 6.8, Red Blood Count 2.80L, Hemoglobin 8.5L, Hematocrit 24.3L , Mean Corpuscular Volume 87, Mean Corpuscular Hemoglobin 30.5, Mean Corpuscular Hemoglobin Concent 35.1, Red Cell Distribution Width 13.8, Platelet Count 60L, Mean Platelet Volume 6.5, Neutrophils (%) (Auto) , Lymphocytes (%) ( Auto) , Monocytes (%) (Auto) , Eosinophils (%) (Auto) , Basophils (%) (Auto) , Differential Total Cells Counted 100, Neutrophils % (Manual) 49, Lymphocytes % ( Manual) 38, Monocytes % (Manual) 10, Eosinophils % (Manual) 2, Basophils % ( Manual) 1, Band Neutrophils 0, Platelet Estimate DecreasedL, Platelet Morphology Normal, Hypochromasia 1+, Anisocytosis 1+, Sodium Level 129L, Potassium Level 7.8*H, Chloride Level 96L, Carbon Dioxide Level 21, Anion Gap 11 , Blood Urea Nitrogen 82H, Creatinine 9.6H, Estimat Glomerular Filtration Rate 6.9, Glucose Level 86, Lactic Acid Level 1.50, Calcium Level 10.9H, Total Bilirubin 0.6, Aspartate Amino Transf (AST/SGOT) 37, Alanine Aminotransferase ( ALT/SGPT) 151H, Alkaline Phosphatase 57, Total Creatine Kinase 335H, Troponin I 0.000, Total Protein 6.8, Albumin 4.1, Globulin 2.7, Albumin/Globulin Ratio 1.5 02/19/18 19:54: Urine Color Yellow, Urine Appearance Clear, Urine pH 5, Urine Specific Addison 1.015, Urine Protein 2+H, Urine Glucose (UA) Negative, Urine Ketones Negative, Urine Occult Blood 2+H, Urine Nitrite Negative, Urine Bilirubin 1+H, Urine Ictotest Negative, Urine Urobilinogen Normal, Urine Leukocyte Esterase 1+H, Urine RBC 5-10H, Urine WBC 2-4, Urine Squamous Epithelial Cells None, Urine Bacteria Few 02/19/18 21:44: Arterial Blood pH 7.333L, Arterial Blood Partial Pressure CO2 29.3L, Arterial Blood Partial Pressure O2 40.5*L, Arterial Blood HCO3 15.2L, Arterial Blood Oxygen Saturation 71.9L, Arterial Blood Base Excess -9.7, Doyle Test Positive 02/20/18 04:00: C-Reactive Protein, Quantitative < 0.4 02/20/18 04:40: White Blood Count 6.3, Red Blood Count 2.36L, Hemoglobin 7.0L, Hematocrit 20.2L , Mean Corpuscular Volume 86, Mean Corpuscular Hemoglobin 29.9, Mean Corpuscular Hemoglobin Concent 34.8, Red Cell Distribution Width 13.6, Platelet Count 53L, Mean Platelet Volume 6.6, Neutrophils (%) (Auto) , Lymphocytes (%) ( Auto) , Monocytes (%) (Auto) , Eosinophils (%) (Auto) , Basophils (%) (Auto) , Differential Total Cells Counted 100, Neutrophils % (Manual) 45, Lymphocytes % ( Manual) 42, Monocytes % (Manual) 12H, Eosinophils % (Manual) 1, Basophils % ( Manual) 0, Band Neutrophils 0, Nucleated Red Blood Cells 2, Platelet Estimate DecreasedL, Platelet Morphology Normal, Hypochromasia 3+, Anisocytosis 1+, Spherocytes 2+, Reticulocyte Count 1.3, Haptoglobin [Pending], Sodium Level 132L , Potassium Level 7.1*H, Chloride Level 101, Carbon Dioxide Level 20L, Anion Gap 12, Blood Urea Nitrogen 78H, Creatinine 8.8H, Estimat Glomerular Filtration Rate 7.6, Glucose Level 25*L, Hemoglobin A1c 6.3H, Uric Acid 21.4H, Calcium Level 9.6, Phosphorus Level 5.1H, Magnesium Level 1.9, Iron Level 84, Total Iron Binding Capacity 236L, Percent Iron Saturation 36, Unsaturated Iron Binding 152, Ferritin 494H, Total Bilirubin 0.5, Gamma Glutamyl Transpeptidase 314H, Aspartate Amino Transf (AST/SGOT) 36, Alanine Aminotransferase (ALT/SGPT) 132H, Alkaline Phosphatase 45L, Troponin I 0.172H, C-Reactive Protein, Quantitative < 0.4, Pro-B-Type Natriuretic Peptide 751H, Total Protein 5.8L, Albumin 3.5, Globulin 2.3, Albumin/Globulin Ratio 1.5, Triglycerides Level 64, Cholesterol Level 123, LDL Cholesterol 72, HDL Cholesterol 39L, Cholesterol/HDL Ratio 3.2L, Vitamin B12 Level 341, Folate 4.9L, Thyroid Stimulating Hormone (TSH ) 0.681 02/20/18 09:00: Iron Level 90, Total Iron Binding Capacity 248L, Percent Iron Saturation 36, Unsaturated Iron Binding 158, Ferritin 611H, Vitamin B12 Level 353, Folate 4.4L , Lactate Dehydrogenase 96, HIV (1&2) Antibody Rapid Negative 02/20/18 09:50: Arterial Blood pH 7.192*L, Arterial Blood Partial Pressure CO2 46.0H, Arterial Blood Partial Pressure O2 132.7H, Arterial Blood HCO3 17.3L, Arterial Blood Oxygen Saturation 97.2, Arterial Blood Base Excess -10.2, Doyle Test Positive 02/20/18 10:50: Stool Occult Blood Negative 02/20/18 12:00: Troponin I 0.083H, Hepatitis A IgM Antibody [Pending], Hepatitis B Surface Antigen [Pending], Hepatitis B Core IgM Antibody [Pending], Hepatitis C Antibody [Pending] 02/20/18 13:35: Arterial Blood pH 7.155*L, Arterial Blood Partial Pressure CO2 48.5H, Arterial Blood Partial Pressure O2 84.2, Arterial Blood HCO3 16.7L, Arterial Blood Oxygen Saturation 92.9, Arterial Blood Base Excess -11.3, Doyle Test Positive Height (Feet): 5 Height (Inches): 11.00 Weight (Pounds): 385 Flower Stewart MD Feb 20, 2018 16:15
--- NOTE | 2018-02-20 16:15 | History & Physical ---
History and Physical History & Physicial seen and examined. Full Dictation in progress Flower Stewart MD Feb 20, 2018 16:15
[2018-02-20] MEDS ORDERED: Dyna-Hex 2% Top Sol 2oz TOPIC SCH (20:00)
--- NOTE | 2018-02-20 20:07 | Cardiology Progress Note ---
Assessment/Plan Assessment/Plan The patient is seen and examined, full consult note will be dictated. Objective Last 24 Hour Vital Signs Date Time Temp Pulse Resp B/P (MAP) Pulse Ox O2 Delivery O2 Flow Rate FiO2 02/20/18 19:19 Bi-pap 25 02/20/18 19:00 85 19 94/50 (65) 99 02/20/18 19:00 86/70 02/20/18 18:40 98.4 85 20 121/54 (76) 98.4 02/20/18 18:32 119/41 02/20/18 18:00 133/28 02/20/18 18:00 82 21 140/121 (127) 100 02/20/18 17:15 131/38 02/20/18 17:05 75 23 94 Facial 25 02/20/18 17:00 81 21 133/43 (73) 99 02/20/18 17:00 121/39 02/20/18 16:45 124/43 02/20/18 16:45 80 20 117/40 (65) 97 02/20/18 16:30 76 19 116/44 (68) 99 02/20/18 16:30 125/44 02/20/18 16:15 78 23 75/36 (49) 98 02/20/18 16:15 119/30 02/20/18 16:05 68/26 02/20/18 16:00 Bi-pap 02/20/18 16:00 97.7 77 23 111/29 (56) 98 97.7 02/20/18 15:25 80 02/20/18 15:00 Bi-pap 25 02/20/18 15:00 97.8 80 20 100/30 (53) 97.8 02/20/18 15:00 78 25 101/71 (81) 87 02/20/18 14:52 80 26 97 Facial 25 02/20/18 14:00 78 16 90/34 (52) 94 02/20/18 13:06 77 23 100 Bi-pap 25 02/20/18 13:00 25 02/20/18 13:00 78 16 100/38 (58) 96 02/20/18 12:56 74 22 100 Bi-pap 25 02/20/18 12:55 77 22 100 Facial 25 02/20/18 12:00 30 8/14/18 12:00 77 02/20/18 12:00 Nasal Cannula 2.0 02/20/18 12:00 98.5 79 23 111/29 (56) 98 98.5 02/20/18 11:30 77 28 99 Facial 30 02/20/18 11:18 30 02/20/18 11:00 84 23 103/49 (67) 97 02/20/18 10:00 88 23 117/40 (65) 99 02/20/18 09:00 85 24 104/43 (63) 100 02/20/18 08:00 84 18 Venturi Mask 15.0 50 02/20/18 08:00 Venturi Mask 15.0 50 02/20/18 08:00 78 02/20/18 08:00 Nasal Cannula 2.0 02/20/18 08:00 98.0 84 22 102/40 (60) 100 98.0 02/20/18 07:00 82 23 107/50 (69) 100 02/20/18 07:00 Venturi Mask 02/20/18 07:00 Venturi Mask 02/20/18 06:00 81 26 107/51 (69) 100 02/20/18 05:00 76 20 95/32 (53) 100 02/20/18 04:00 50 02/20/18 04:00 95.4 74 20 101/36 (57) 100 95.4 02/20/18 04:00 Venturi Mask 15.0 02/20/18 03:57 76 02/20/18 03:30 76 20 100/39 (59) 100 02/20/18 03:00 77 17 76/36 (49) 100 02/20/18 02:53 Venturi Mask 13.5 02/20/18 02:44 94.7 79 20 80/39 (53) 94.7 02/20/18 02:00 73 17 61/26 (38) 100 02/20/18 01:00 71 16 74/33 (47) 100 02/20/18 00:22 71 02/20/18 00:00 69 15 73/50 (58) 100 02/20/18 00:00 50 02/20/18 00:00 Venturi Mask 15.0 02/19/18 23:30 74 22 104/44 (64) 100 02/19/18 23:00 93.9 72 20 99/95 (96) 93.9 02/19/18 23:00 Venturi Mask 13.5 02/19/18 23:00 72 19 92/35 (54) 100 02/19/18 22:59 Venturi Mask 15.0 50 02/19/18 22:59 66 20 Venturi Mask 15.0 50 02/19/18 22:45 73 19 100/44 (62) 100 02/19/18 22:30 94.7 74 20 96/49 (65) 98 94.7 02/19/18 22:17 82 02/19/18 22:16 93.9 76 20 84/51 (62) 98 93.9 02/19/18 22:15 Nasal Cannula 2.0 02/19/18 22:13 98.4 65 20 95/34 100 Nasal Cannula 2.0 28 98.4 02/19/18 22:13 98.4 69 20 93/30 100 Nasal Cannula 2.0 28 98.4 02/19/18 22:10 98.4 69 20 93/30 100 Nasal Cannula 2.0 28 98.4 Intake and Output 02/19/18 02/20/18 19:00 07:00 Intake Total 2110 ml Output Total 120 ml Balance 1990 ml Intake Oral 200 ml IV Total 1910 ml Output Urine Total 120 ml Hemodialysis UF 0 ml # Voids 1 Laboratory Tests Test 02/19/18 21:44 02/20/18 04:00 02/20/18 04:40 02/20/18 09:00 Arterial Blood pH 7.333 (7.350-7.450) Arterial Blood Partial Pressure CO2 29.3 mmHg (35.0-45.0) L Arterial Blood Partial Pressure O2 40.5 mmHg (75.0-100.0) Arterial Blood HCO3 15.2 mmol/L (22.0-26.0) L Arterial Blood Oxygen Saturation 71.9 % (92.0-98.0) L Arterial Blood Base Excess -9.7 Doyle Test Positive C-Reactive Protein, Quantitative < 0.4 mg/dL (0.00-0.90) < 0.4 mg/dL (0.00-0.90) White Blood Count 6.3 K/UL (4.8-10.8) Red Blood Count 2.36 M/UL (4.70-6.10) L Hemoglobin 7.0 G/DL (14.2-18.0) L Hematocrit 20.2 % (42.0-52.0) L Mean Corpuscular Volume 86 FL (80-99) Mean Corpuscular Hemoglobin 29.9 PG (27.0-31.0) Mean Corpuscular Hemoglobin Concent 34.8 G/DL (32.0-36.0) Red Cell Distribution Width 13.6 % (11.6-14.8) Platelet Count 53 K/UL (150-450) L Mean Platelet Volume 6.6 FL (6.5-10.1) Neutrophils (%) (Auto) % (45.0-75.0) Lymphocytes (%) (Auto) % (20.0-45.0) Monocytes (%) (Auto) % (1.0-10.0) Eosinophils (%) (Auto) % (0.0-3.0) Basophils (%) (Auto) % (0.0-2.0) Differential Total Cells Counted 100 Neutrophils % (Manual) 45 % (45-75) Lymphocytes % (Manual) 42 % (20-45) Monocytes % (Manual) 12 % (1-10) H Eosinophils % (Manual) 1 % (0-3) Basophils % (Manual) 0 % (0-2) Band Neutrophils 0 % (0-8) Nucleated Red Blood Cells 2 /100 WBC Platelet Estimate Decreased L Platelet Morphology Normal Hypochromasia 3+ Anisocytosis 1+ Spherocytes 2+ Reticulocyte Count 1.3 % (0.0-2.0) Haptoglobin Pending Sodium Level 132 MMOL/L (136-145) L Potassium Level 7.1 MMOL/L (3.5-5.1) *H Chloride Level 101 MMOL/L (98-107) Carbon Dioxide Level 20 MMOL/L (21-32) L Anion Gap 12 mmol/L (5-15) Blood Urea Nitrogen 78 mg/dL (7-18) H Creatinine 8.8 MG/DL (0.55-1.30) H Estimat Glomerular Filtration Rate 7.6 mL/min (>60) Glucose Level 25 MG/DL (74-106) *L Hemoglobin A1c 6.3 % (4.3-6.0) H Uric Acid 21.4 MG/DL (2.6-7.2) H Calcium Level 9.6 MG/DL (8.5-10.1) Phosphorus Level 5.1 MG/DL (2.5-4.9) H Magnesium Level 1.9 MG/DL (1.8-2.4) Iron Level 84 ug/dL (50-175) 90 ug/dL (50-175) Total Iron Binding Capacity 236 ug/dL (250-450) L 248 ug/dL (250-450) L Percent Iron Saturation 36 % (15-50) 36 % (15-50) Unsaturated Iron Binding 152 ug/dL (112-346) 158 ug/dL (112-346) Ferritin 494 NG/ML (8-388) H 611 NG/ML (8-388) H Total Bilirubin 0.5 MG/DL (0.2-1.0) Gamma Glutamyl Transpeptidase 314 U/L (5-85) H Aspartate Amino Transf (AST/SGOT) 36 U/L (15-37) Alanine Aminotransferase (ALT/SGPT) 132 U/L (12-78) H Alkaline Phosphatase 45 U/L (46-116) L Troponin I 0.172 ng/mL (0.000-0.056) Pro-B-Type Natriuretic Peptide 751 pg/mL (0-125) H Total Protein 5.8 G/DL (6.4-8.2) L Albumin 3.5 G/DL (3.4-5.0) Globulin 2.3 g/dL Albumin/Globulin Ratio 1.5 (1.0-2.7) Triglycerides Level 64 MG/DL (30-150) Cholesterol Level 123 MG/DL (< 200) LDL Cholesterol 72 mg/dL (<100) HDL Cholesterol 39 MG/DL (40-60) L Cholesterol/HDL Ratio 3.2 (3.3-4.4) L Vitamin B12 Level 341 PG/ML (193-986) 353 PG/ML (193-986) Folate 4.9 NG/ML (8.6-58.9) L 4.4 NG/ML (8.6-58.9) L Thyroid Stimulating Hormone (TSH) 0.681 uiU/mL (0.358-3.740) Lactate Dehydrogenase 96 U/L (81-234) HIV (1&2) Antibody Rapid Negative (NEGATIVE) Test 02/20/18 09:50 02/20/18 10:50 02/20/18 12:00 02/20/18 13:35 Arterial Blood pH 7.192 (7.350-7.450) 7.155 (7.350-7.450) Arterial Blood Partial Pressure CO2 46.0 mmHg (35.0-45.0) H 48.5 mmHg (35.0-45.0) H Arterial Blood Partial Pressure O2 132.7 mmHg (75.0-100.0) H 84.2 mmHg (75.0-100.0) Arterial Blood HCO3 17.3 mmol/L (22.0-26.0) L 16.7 mmol/L (22.0-26.0) L Arterial Blood Oxygen Saturation 97.2 % (92.0-98.0) 92.9 % (92.0-98.0) Arterial Blood Base Excess -10.2 -11.3 Doyle Test Positive Positive Stool Occult Blood Negative (NEGATIVE) Troponin I 0.083 ng/mL (0.000-0.056) Hepatitis A IgM Antibody Pending Hepatitis B Surface Antigen Pending Hepatitis B Core IgM Antibody Pending Hepatitis C Antibody Pending Test 02/20/18 19:28 Arterial Blood pH 7.181 (7.350-7.450) Arterial Blood Partial Pressure CO2 40.5 mmHg (35.0-45.0) Arterial Blood Partial Pressure O2 76.7 mmHg (75.0-100.0) Arterial Blood HCO3 14.8 mmol/L (22.0-26.0) L Arterial Blood Oxygen Saturation 93.1 % (92.0-98.0) Arterial Blood Base Excess -12.7 Doyle Test Positive Microbiology Date/Time Source Procedure Growth Status 02/19/18 19:54 Rectum Received Marco Buchanan MD Feb 20, 2018 20:07
--- NOTE | 2018-02-20 20:31 | Consultation ---
DATE OF CONSULTATION: 02/20/2018 INFECTIOUS DISEASE CONSULTATION CONSULTING PHYSICIAN: Neil Brooke M.D. REQUESTING PHYSICIAN: Flower Stewart M.D. REASON FOR CONSULTATION: Hypertension, urinary tract infection, and possible septic shock. Recommendation for antibiotics treatment with respiratory failure and advanced renal failure. HISTORY OF PRESENT ILLNESS: The patient is a 57-year-old male with past medical history of morbid obesity, obstructive sleep apnea, on BiPAP at home, chronic kidney disease, and diabetes with complication, who presented with generalized weakness and respiratory distress to the emergency room at [facility]. The patient has been dieting recently with eating vegetables and drinking water and using laxative, which has caused massive diarrhea and subsequently dehydration. The patient was found to be hypotensive in the emergency room with blood pressure of 77/55 and pulse of 64 with hypoxemia. Urinalysis showed evidence of urinary tract infection. So, the patient was given antibiotics and Infectious Disease consultation was requested for antibiotics treatment and further management. As of note, the patient is on the BiPAP machine with mask on and could not provide good history. History was mainly obtained from the medical record and the nursing staff. PAST MEDICAL HISTORY: Significant for morbid obesity, obstructive sleep apnea, on BiPAP, chronic kidney disease, noninsulin-dependant diabetes, congestive heart failure, and hypertension. PAST SURGICAL HISTORY: Not on record. MEDICATIONS: The patient received cefepime in the emergency room. For the rest of his medications, please refer to MAR. ALLERGIES: He has no known drug allergy. FAMILY HISTORY: Not contributory. SOCIAL HISTORY: The patient lives at home with . Denied using any drugs, tobacco, or alcohol. REVIEW OF SYSTEMS: Unable to obtain. The patient cannot provide history at this point due to BiPAP mask. PHYSICAL EXAMINATION: VITAL SIGNS: Temperature 98.5, pulse 79, respirations 23, blood pressure 111/29, and saturation 98 on facial mask with FiO2 of 25%. GENERAL: A middle-aged male, morbidly obese, lying in bed, on BiPAP machine mask. Awake, alert, responsive, and not in acute distress. HEENT: Normocephalic and atraumatic. Pupils are reactive to light. Unable to assess oral mucosa due to the mask. NECK: Supple. No lymphadenopathy. CARDIOVASCULAR: Regular rate and rhythm. No murmur or gallop. LUNGS: He had wheezing with diminished breathing sounds at the bases and crackles. Poor air entry. ABDOMEN: Soft and morbidly obese with generalized tenderness. EXTREMITY: Trace edema. No cyanosis or clubbing. LABORATORY DATA: Labs showed white count of 6.3, hemoglobin of 7, and platelet count of 53,000. BUN 78, creatinine 8.8, potassium 7.1, and glucose 25. Ferritin 494. ALT 132. Urinalysis showed a +1 leukocyte esterase, 5 to 10 red blood cells, 2 to 4 wbc, and few bacteria. SEROLOGY: HIV screening negative. Hepatitis panel is pending. IMAGING: Chest x-ray on admission showed left pleural effusion. Hazy apparent parenchymal opacity could be artifact. Repeated chest x-ray on 02/19/2018 showed satisfactory positions of right jugular central venous catheter and right jugular temporary dialysis catheter. Renal ultrasound showed mild right renal collecting system fullness without samia hydronephrosis, no left hydronephrosis, and empty bladder with Gallegos catheter. ASSESSMENT AND RECOMMENDATION: 1. Septic shock with hypotension and respiratory failure. We will start the patient on Zosyn and daptomycin, empiric coverage pending blood culture results. Continue hydration and pressor as needed. We will deescalate his antibiotics based on his culture results. 2. Dehydration. Continue intravenous fluids and blood transfusion products as needed to support his blood pressure. Monitor electrolytes. 3. Hyperkalemia due to advanced renal failure. Required hemodialysis. Monitor potassium. Repeat level. 4. Diabetes. Recommend tight glycemic control to keep blood glucose between 100 to 140. 5. Acute renal failure, advanced with end-stage renal disease and uremia with metabolic acidosis. Started on hemodialysis as per Renal service. Monitor urine output and daily weight. 6. Thrombocytopenia suspect due to sepsis. Monitor platelets. Hematology is following. Avoid heparin product. 7. Acute respiratory failure with hypoxemia due to the above, on BiPAP machine, still acidotic. Pulmonary team is following. Monitor ABG and chest x-ray. Thank you for the consult. ID will continue to follow. Please feel free to call with any questions. Neil Brooke M.D. DR: GREGG JOB#: [id number] CC:
[2018-02-20] MEDS ORDERED: Iron Sucrose 100 MG in NS 55 ML IV SCH (21:00)
[2018-02-20] MEDS ORDERED: DOPamine 400mg/250ml 0 ML IV ONE (21:22)
[2018-02-20] MEDS ORDERED: Levophed 4mg/4mL Inj IV ONE (21:30)
[2018-02-20 21:44] LABS: HEMATOCRIT 26.2 % (42.0-52.0); HEMOGLOBIN 9.1 G/DL (14.2-18.0); MEAN CORPUSCULAR VOLUME 90 FL (80-99); PLATELET COUNT 55 K/UL (150-450); RED BLOOD COUNT 2.92 M/UL (4.70-6.10); RED CELL DISTRIBUTION WIDTH 14.5 % (11.6-14.8); WHITE BLOOD COUNT 11.1 K/UL (4.8-10.8)
[2018-02-20 21:46] LABS: BASOPHILS % (AUTO) 5.8 % (0.0-2.0); EOSINOPHILS % (AUTO) 1.4 % (0.0-3.0); LYMPHOCYTES % (AUTO) 31.2 % (20.0-45.0); MONOCYTES % (AUTO) 16.1 % (1.0-10.0); NEUTROPHILS % (AUTO) 45.5 % (45.0-75.0)
--- NOTE | 2018-02-20 21:47 | Emergency Room Report ---
History of Present Illness General Chief Complaint: Abnormal Labs Source: Patient, Medical Record Present Illness Allergies: Coded Allergies: No Known Allergies (Unverified , 02/19/18) Nursing Documentation-[facility] Past Medical History: No History, Except For Hx Cardiac Problems: Yes Hx Hypertension: Yes Hx Diabetes: Yes - TYPE 2 Hx Cancer: No Hx Gastrointestinal Problems: No Hx Neurological Problems: No Physical Exam Vital Signs Date Time Temp Pulse Resp B/P (MAP) Pulse Ox O2 Delivery O2 Flow Rate FiO2 02/19/18 17:37 98.4 64 16 77/55 99 Room Air 98.4 02/19/18 17:45 2.0 02/19/18 19:20 28 Procedures Critical Care Time Critical Care Time i. I feel this is a highly complex case requiring extensive working including EKG/Rhythm strip, Xray/CT/US, Blood/urine lab work, repeat exams while in ED, and administration of strong opiates/narcotics for pain control, admission to hospital or close patient follow up. Total time: 30 min bedside evaluation and treatment excludes procedures (EKG). Reason for critical care: acidosis, respiratory distress Possible complications: hypotension, hypertension, PR, shock, arrhythmias, metabolic acidosis, end organ damage, respiratory failure. Interventions: review of ABG. intubation. review of CXR Course: Patient presenting with profound acidosis without compensation. Difficulty breathing. On BiPAP. Decision made to intubate the patient. Due to patient's morbid habitus it was very difficult to visualize airway via kaleidoscope or direct visualization. However I was able to place ET tube. Chest x-ray confirms ET tube in place. Consultations: nursing staff, EMS, family Performed by: Dr Abad Tolerated well condition = critical j. because of unstable vital signs this patient had a condition that could potentially threaten life or limb. I feel this is a critical patient who required my full attention while patient was considered critical. Total Critical Care Time excluding procedures was greater than 35 minutes Intubation Intubation : Consent: Emergent Intubation Method: orotracheal Tube Size (cm): 8.0 Medications: Etomidate, Rocuronium Breath Sounds after Intubation: equal Intubation Complications: no complications Post Intubation Xray: Yes Attempts: One Patient Tolerated: Well Complications: None Medical Decision Making Diagnostic Impression: Primary Impression: VITOR (acute kidney injury) Additional Impressions: Morbid obesity Anemia Diabetes Hyponatremia Obesity hypoventilation syndrome ER Course I was called to the ICU to evaluate this patient. Patient has profound acidosis without compensation. On BiPAP. Initial discussion earlier today with family and patient was to for intubation and increased the PEEP on BiPAP and reassess after dialysis. After dialysis patient remains acidotic. Decision was made to intubate the patient. Due to patient's profound morbid obesity was a very difficult airway. Difficult to visualize cords via glidescope or direct visualization. Ultimately I was able to intubate using direct visualization. Chest x-ray confirms ET tube placement Last Vital Signs Date Time Temp Pulse Resp B/P (MAP) Pulse Ox O2 Delivery O2 Flow Rate FiO2 02/20/18 21:35 79/33 02/20/18 19:19 Bi-pap 25 02/20/18 19:00 84 22 95 02/20/18 19:00 20.0 02/20/18 18:40 98.4 98.4 Status: improved Disposition: ADMITTED INPATIENT Condition: Critical Referrals: CAITLIN DIMAS (PCP) Spencer Abad MD Feb 20, 2018 21:47
[2018-02-20 21:51] LABS: ANION GAP 7 mmol/L (5-15); BLOOD UREA NITROGEN 77 mg/dL (7-18); CALCIUM 9.2 MG/DL (8.5-10.1); CARBON DIOXIDE 18 MMOL/L (21-32); CHLORIDE 103 MMOL/L (98-107); SODIUM 129 MMOL/L (136-145)
[2018-02-20 21:56] LABS: POTASSIUM 8.2 MMOL/L (3.5-5.1)
[2018-02-20] MEDS: Hydrocortisone 100mg Inj IV SCH (22:45)
[2018-02-20] MEDS ORDERED: Sodium Polystyrene Sulfonate 15gm Powder ORAL ONE (23:00)
[2018-02-20] MEDS ORDERED: Vasopressin 100 UNITS in NS 95 ML IV SCH (23:00)
[2018-02-20] MEDS ORDERED: SODIUM BICARBONATE IV SCH (23:00)
[2018-02-20] MEDS ORDERED: D5NS IV SCH (23:00)
[2018-02-20 23:16] LABS: HEMATOCRIT 26.9 % (42.0-52.0); HEMOGLOBIN 9.1 G/DL (14.2-18.0); MEAN CORPUSCULAR VOLUME 91 FL (80-99); PLATELET COUNT 47 K/UL (150-450); RED BLOOD COUNT 2.97 M/UL (4.70-6.10); RED CELL DISTRIBUTION WIDTH 14.7 % (11.6-14.8); WHITE BLOOD COUNT 5.1 K/UL (4.8-10.8)
[2018-02-20 23:27] LABS: ANION GAP 7 mmol/L (5-15); BLOOD UREA NITROGEN 76 mg/dL (7-18); CARBON DIOXIDE 19 MMOL/L (21-32); CHLORIDE 104 MMOL/L (98-107); CREATININE 8.3 MG/DL (0.55-1.30); SODIUM 130 MMOL/L (136-145)
[2018-02-20 23:32] LABS: POTASSIUM 7.9 MMOL/L (3.5-5.1)
[2018-02-21] VITALS (10 sets, daily range): BP systolic 64–102; BP diastolic 28–87
--- NOTE | 2018-02-21 00:32 | Consultation ---
DATE OF CONSULTATION: 02/20/2018 NOTE: INCOMPLETE DICTATION CARDIOLOGY CONSULTATION CONSULTING PHYSICIAN: Marco Buchanan M.D. REFERRING PHYSICIAN: Flower Stewart M.D. REASON FOR CONSULTATION: Management of elevated troponin I level. HISTORY OF PRESENT ILLNESS: This is a very unfortunate 57-year-old morbidly obese gentleman with a history of obesity, hypoventilation syndrome, chronic kidney disease, and diabetes mellitus type 2, who presented to the hospital with generalized weakness for about 3 weeks. According to the ER note, the patient was unable to stand up on his own. Apparently, he has been using laxatives, has been eating vegetables, and drinking water. He has had diffuse diarrhea. On arrival to the emergency department, initial blood pressure was 77/55 mmHg and heart rate was 64. Initial 12-lead electrocardiogram revealed sinus bradycardia at the rate of 50 with low voltage and wide QRS complex consistent with nonspecific intraventricular conduction delay. There was nonspecific ST and T-wave abnormalities. According to the ER physician, had spoken to his primary care physician to get out of the baseline creatinine ranging from 2 to 3. The patient was diagnosed with acute kidney injury and severe hyperlipidemia with potassium at 7.8. He was given Kayexalate. Repeat of potassium was 7.1. The patient was admitted to intensive care unit for further evaluation and management of hypertension as well as acute kidney injury and hyperkalemia. A 2D echocardiography revealed normal LV systolic function with LVEF approximately 75%. Right ventricular dilatation is seen. There is also severe decrease in RV systolic function. PAST MEDICAL HISTORY: As mentioned above including, 1. Morbid obesity. 2. Obesity hypoventilation syndrome. 3. Chronic kidney disease. 4. Diabetes mellitus. LIST OF MEDICATIONS: 1. Amlodipine 10 mg p.o. daily. 2. Aspirin 325 mg p.o. daily. 3. Benazepril 20 mg p.o. daily. 4. Glyburide 5 mg p.o. daily. 5. Metformin 750 mg daily. 6. Isosorbide mononitrate mg p.o. daily. 7. Albuterol inhaler twice daily. ALLERGIES: No known drug allergies. SOCIAL HISTORY: Denies any tobacco, alcohol, or illicit drug use. He lives at home. Bed-bound due to bilateral hip pain. REVIEW OF SYSTEMS: Currently, the patient is getting intubated. Therefore, review of systems could not be obtained. From the ER physician note, the patient had trouble with malaise, diarrhea, back pain, muscle pain, but no chest pain or shortness of breath. Marco Buchanan M.D. DR: LAKSHMI JOB#: [id number] CC:
--- NOTE | 2018-02-21 01:16 | History and Physical Report ---
DATE OF ADMISSION: 02/19/2018 SOURCE OF INFORMATION: Patient and EMR. HISTORY OF PRESENT ILLNESS: The patient is a 57-year-old male with the history of blood pressure and diabetes, who presented with change in mental status to the hospital. Initial vital signs in the emergency room showed that the patient had a markedly low blood pressure with the low pulse rate. The patient has been awake, but demonstrated lack of cognition and alertness. At the time of evaluation in the intensive care unit bed, the patient denies any chest pain or shortness of breath. Denies any nausea or vomiting. . Denies any abnormal bleeding. Denies any severe pain or swelling. REVIEW OF SYSTEMS: All 12 elements of review of systems reviewed with the patient. Pertinent positive and negative as above. CURRENT HOSPITAL MEDICATIONS: Including but not limited to allopurinol, daptomycin, and Zosyn. ALLERGIES: NKDA. SOCIAL HISTORY: The patient reportedly lives by himself. The patient denies history of illicit drug abuse, smoking, or alcohol abuse. PHYSICAL EXAMINATION: VITAL SIGNS: Blood pressure 70/50, pulse rate 56, temperature 98.2, and pulse oximetry 100% on room air. HEENT: Head is atraumatic and normocephalic. CHEST: Clear to auscultation. No wheezing. No crackles. HEART: S1 and S2. Regular rate and rhythm. ABDOMEN: Soft. No organomegaly. MUSCULOSKELETAL: No gross lateralized motor deficit. NEUROLOGY: The patient is awake. He has decrease and lack in the memory and lack in the cognition and slow mentation. MUSCULOSKELETAL: No gross focal motor deficit. LABORATORY DATA: Labs dated February 19, 2018 showed WBC 6.8, hemoglobin 8.5, and platelet count of 60. Sodium 129, potassium 7.8, BUN 82, and creatinine 9.6. The ALT is 161. Urinalysis is negative for acute infection. ASSESSMENT: 1. Acute encephalopathy 2. Septic shock, source work in progress 2. Diabetes type 2, uncontrolled. 3. Noncompliance with medication and treatment advise as an outpatient. 4. Acute on chronic anemia. 5. Abnormal liver function tests. 6. Gastrointestinal and deep vein thrombosis prophylaxes. 7. Hyperkalemia. PLAN OF CARE: I discussed the care in detail with Dr. Noriega, the ER attending. We will consult the surgeon regarding the emergency insertion of the hemodialysis access, Nephrology doctor, Dr. Sparks notified. medical billing specialist, Dr Brito notified. Patient in serious medical condition. I agree with current empirical antibiotic regiments. Flower Stewart M.D. DR: AAMIR JOB#: [id number] CC: RAÚL
[2018-02-21] MEDS: Albuterol/Ipratropium 3ml neb HHN SCH (01:25)
[2018-02-21] MEDS: D5NS 1,000 ML IV SCH (02:15)
[2018-02-21] MEDS ORDERED: NOREPINEPHRINE BITARTRATE IV SCH (03:00)
[2018-02-21] MEDS ORDERED: SODIUM CHLORIDE IV SCH (03:00)
--- NOTE | 2018-02-21 03:46 | Consultation ---
DATE OF CONSULTATION: 02/20/2018 CARDIOLOGY CONSULTATION CONSULTING PHYSICIAN: Marco Buchanan M.D. REFERRING PHYSICIAN: Flower Stewart M.D. REASON FOR CONSULTATION: Management of elevated troponin I level. HISTORY OF PRESENT ILLNESS: The patient is a very unfortunate 57-year-old gentleman with morbid obesity, who presents to the hospital with generalized weakness for about 3 weeks, diffuse diarrhea following use of laxatives in order to diet as well as poor dieting in the past couple of weeks, eating only vegetables and drinking water. He is bedbound due to bilateral hip pain. At the time of arrival to the hospital, his blood pressure was hypotensive with blood pressure of 77/55 mmHg and pulse of 64. A 12-lead electrocardiogram showed sinus bradycardia with low voltage and nonspecific intraventricular conduction delay. He was admitted to intensive care unit for management of hypotension as well as acute kidney injury. Initial potassium level was 7.8. Creatinine level was measured at 9.6. Apparently, the patient has a history of chronic kidney disease and his creatinine is ranging from 2 to 3. PAST MEDICAL HISTORY: 1. History of morbid obesity. 2. History of CKD. 3. History of diabetes mellitus type 2. 4. History of obesity hypoventilation syndrome. 5. History of bilateral hip pain. 6. History of diarrhea due to laxative use. PAST SURGICAL HISTORY: Right hip surgery, presence of prosthesis. MEDICATIONS: Amlodipine 10 mg p.o. daily, aspirin 325 mg p.o. daily, benazepril 20 mg p.o. daily, 5 mg p.o. daily, metformin 750 mg daily, isosorbide 10 mg p.o. daily, and albuterol inhaler 1 to 2 puffs q.4-6 hours p.r.n. shortness of breath. ALLERGIES: No known drug allergies. FAMILY HISTORY: No premature coronary artery disease or arrhythmogenic in first-degree relatives. REVIEW OF SYSTEMS: The patient is currently being intubated. Therefore, review of systems could not be obtained. From ER physician note, the patient had complaints of malaise, diarrhea, back pain, and muscle pain. PHYSICAL EXAMINATION: GENERAL: Morbidly obese 57-year-old gentleman, in mild respiratory distress. VITAL SIGNS: Blood pressure was 77/55, respirations 16, pulse of 64, O2 saturation 99% on room air, and temperature 98.4 degrees Fahrenheit. HEENT: Atraumatic and normocephalic. Anicteric. Pupils are equal, round, and reactive to light and accommodation. Extraocular muscles intact. NECK: Could not assess JVP due to obesity and short neck and no carotid bruit. CARDIOVASCULAR: Normal S1 and S2. Regular rate and rhythm. No murmurs, gallops, or rubs. LUNGS: Clear to auscultation bilaterally. ABDOMEN: Distended due to obesity. No hepatosplenomegaly. Positive bowel sounds. EXTREMITIES: No evidence of edema, clubbing, or cyanosis. LABORATORY AND DIAGNOSTIC DATA: Sodium was 139, potassium is 7.8, chloride 96, bicarbonate 21, BUN of 82, creatinine 9.6, and glucose is 86. Calcium is 10.9. AST was 151. Troponin I was 0 and second troponin I was 0.17, third troponin was 0.08. WBC was 6.8, hemoglobin 8.5, hematocrit of 24.3, and platelet count is 60. Blood gas showed pH 7.33, pCO2 of 29.3, pO2 was 40.5, bicarbonate 16.2, and O2 saturation 71.9. Chest x-ray revealed probable left pleural effusion. Hazy parenchymal opacity. A 2D echocardiography revealed normal LV systolic function with LVEF of about 60%-65%. No wall motion abnormalities. There is moderate RV enlargement with severely decreased RV systolic function. Trace tricuspid regurgitation with RVSP at 23 mmHg. This study was technically difficult due to the body habitus. ASSESSMENT AND PLAN: The patient is a very unfortunate 57-year-old gentleman, seen in the intensive care unit of [facility]. 1. Slight elevation of troponin I level most likely due to hypotension, a 12-lead electrocardiogram does not show any distinct ST-segment changes and nonspecific ST and T-wave abnormality most likely than not account for acute coronary syndrome. The pattern of troponin rise is also not compatible with acute coronary syndrome or acute . 2. The patient is not currently a suitable candidate for antiplatelet therapy given the hemoglobin of 7. He may in fact require a blood transfusion. 3. Severe hyperkalemia with no EKG changes. We would like to repeat 12-lead electrocardiogram stat. The patient requires to be on a combination of Lasix, insulin, D5 as well as Kayexalate in order to avoid cardiac arrhythmias. Due to widening QRS, the patient will require to have calcium gluconate as well. 4. Moderate RV dilatation with severely decreased RV systolic function, likely secondary to ONELIA, cannot rule out chronic DVT given the patient's body habitus. Of note, we cannot rely on RVSP in this echocardiography due to technically difficult study. 5. A V/Q scan in the future might be beneficial. 6. Obesity with acute hypercapnic hypoxic respiratory failure, currently being intubated. Total amount of time spent in the evaluation of this patient in the intensive care unit of [facility] discussing the plan of care with the nursing staff and primary care physician was 50 minutes. I would like to thank Dr. Stewart for the courtesy of this consultation. Marco Buchanan M.D. DR: SHEREE JOB#: [id number] CC:
[2018-02-21 06:06] LABS: HEMATOCRIT 26.1 % (42.0-52.0); HEMOGLOBIN 8.6 G/DL (14.2-18.0); MEAN CORPUSCULAR VOLUME 93 FL (80-99); PLATELET COUNT 29 K/UL (150-450); RED BLOOD COUNT 2.82 M/UL (4.70-6.10); RED CELL DISTRIBUTION WIDTH 15.1 % (11.6-14.8); WHITE BLOOD COUNT 5.1 K/UL (4.8-10.8)
--- NOTE | 2018-02-21 06:27 | Emergency Room Report ---
History of Present Illness General Chief Complaint: Abnormal Labs Source: Patient, Medical Record Present Illness HPI I was called to the ICU to respond to a code blue, asystole, CPR in progress, 2 rounds of epi given, upon my pulse check, patient with good carotid pulse. Patient's accuchek was 250, I requested 1 amp CaCl, and 10 units insulin. Patient with narrow complex rhythm on monitor. Already on levophed, bicarbonate drips, and had multiple doses of kayexalate and hemodialysis. I requested adding epinephrine drip. ROSC achieved, ETT still in place. Allergies: Coded Allergies: No Known Allergies (Unverified , 02/19/18) Nursing Documentation-[facility] Past Medical History: No History, Except For Hx Cardiac Problems: Yes Hx Hypertension: Yes Hx Diabetes: Yes - TYPE 2 Hx Cancer: No Hx Gastrointestinal Problems: No Hx Neurological Problems: No Physical Exam Vital Signs Date Time Temp Pulse Resp B/P (MAP) Pulse Ox O2 Delivery O2 Flow Rate FiO2 02/19/18 17:37 98.4 64 16 77/55 99 Room Air 98.4 02/19/18 17:45 2.0 02/19/18 19:20 28 Medical Decision Making Diagnostic Impression: Primary Impression: VITOR (acute kidney injury) Additional Impressions: Morbid obesity Anemia Diabetes Hyponatremia Obesity hypoventilation syndrome Last Vital Signs Date Time Temp Pulse Resp B/P (MAP) Pulse Ox O2 Delivery O2 Flow Rate FiO2 02/21/18 05:26 89 02/21/18 05:16 32 100 02/21/18 04:00 97.6 90/60 (70) 89 97.6 02/21/18 04:00 Mechanical Ventilator 02/21/18 01:25 55.0 Disposition: ADMITTED INPATIENT Condition: Critical Referrals: CAITLIN DIMAS (PCP) FRANCESCO FRENCH M.D Feb 21, 2018 06:27
[2018-02-21] MEDS: Hydrocortisone 100mg Inj IV SCH (06:29)
[2018-02-21] MEDS ORDERED: EPINEPHrine 1mg/1ml Amp 1 MG in D5W 249 ML IV SCH (06:30)
[2018-02-21 06:31] LABS: CREATINE KINASE 399 U/L (26-308); GAMMA GLUTAMYL TRANSPEPTIDASE 301 U/L (5-85)
[2018-02-21 06:36] LABS: ALANINE AMINOTRANSFERASE 148 U/L (12-78); ALBUMIN 2.9 G/DL (3.4-5.0); ALBUMIN/GLOBULIN RATIO 1.5 (1.0-2.7); ALKALINE PHOSPHATASE 45 U/L (46-116); ANION GAP 15 mmol/L (5-15); ASPARTATE AMINO TRANSFERASE 61 U/L (15-37); BILIRUBIN,TOTAL 1.9 MG/DL (0.2-1.0); BLOOD UREA NITROGEN 76 mg/dL (7-18); CALCIUM 8.6 MG/DL (8.5-10.1); CARBON DIOXIDE 15 MMOL/L (21-32); CHLORIDE 104 MMOL/L (98-107); PHOSPHORUS 6.8 MG/DL (2.5-4.9); SODIUM 135 MMOL/L (136-145)
[2018-02-21 06:37] LABS: POTASSIUM 8.1 MMOL/L (3.5-5.1)
[2018-02-21 06:38] LABS: BILIRUBIN,DIRECT 1.2 MG/DL (0.0-0.3)
[2018-02-21] MEDS ORDERED: Insulin Human Regular 100units/ml 3ml IV ONE (06:45)
--- NOTE | 2018-02-21 09:07 | Diagnostic Imaging Report ---
Indication: Abdominal pain Technique: Campos-scale and duplex images of the upper abdomen were obtained Comparison: none Findings: There is trace free intraperitoneal fluid adjacent to the left hepatic lobe. Gallbladder is filled with stones. There is mild gallbladder wall thickening, gallbladder wall measuring 4 mm thick, although gallbladder is incompletely distended. Sonographic Lagunas's sign is negative. Common bile duct measures 2 mm in diameter. No intrahepatic biliary ductal dilatation. Liver is slightly enlarged, demonstrates equivocal slight increased echogenicity, compatible with hepatocellular disease. No surface nodularity demonstrated Portal vein and hepatic veins are patent. Pancreas is incompletely visualized due to overlying bowel gas, visualized portions are unremarkable. The spleen is borderline enlarged, measuring 13 cm long axis dimension Left kidney measures 13.5 cm in length. Right kidney measures 13.4 cm length. Both kidneys demonstrate normal echogenicity. There is mild fullness of the right renal collecting system without samia hydronephrosis, also demonstrated on recent renal ultrasound. There is a 2.3 cm right renal cyst . Abdominal aorta is partially obscured by bowel gas, visualized portions are non-aneurysmal . Impression: Cholelithiasis. Borderline gallbladder wall thickening, probably an artifact of incomplete distention but does raise the possibility of acute cholecystitis. Consider nuclear medicine hepatobiliary scan for further evaluation if there is high clinical suspicion for such Negative for dilated ducts Mildly enlarged liver with slightly increased echogenicity, compatible with hepatocellular disease, most likely fatty change Trace ascites Borderline splenomegaly Mild fullness of the right renal collecting system without samia hydronephrosis Other findings as noted, including right renal cyst Note suboptimal visualization of the pancreas and abdominal aorta
--- NOTE | 2018-02-21 09:35 | Diagnostic Imaging Report ---
Indication: Post intubation Technique: One view of the chest Comparison: 02/19/2018 Findings: Interim endotracheal intubation, endotracheal tube tip projecting approximately or centimeters above the anushka. There is subcutaneous emphysema in the neck and bilateral supraclavicular fossae. No evidence of pneumothorax or pneumomediastinum. Again demonstrated is hazy right lung parenchymal disease. Left lower lobe opacification and left basilar pleural fluid appears to be increased. Central venous and temporary dialysis catheter is again demonstrated. Impression: Satisfactory endotracheal intubation Bilateral supraclavicular fossa and neck subcutaneous emphysema Increased pleural and parenchymal disease of the left lung base Other stable findings as described This agrees with the preliminary interpretation provided overnight by [facility] teleradiology service.
--- NOTE | 2018-02-21 10:31 | Diagnostic Imaging Report ---
Indication: Status post nasogastric tube placement Technique: One view of the chest Comparison: 2 hours earlier Findings: Interim placement of an enteric tube, distal portion of which is poorly visualized due to patient body habitus. Stable satisfactory positions of endotracheal tube, right jugular catheters. Pulmonary aeration equivocally slightly improved bilaterally. Left basilar consolidation and pleural fluid appear stable. Bilateral supraclavicular and neck subcutaneous emphysema is unchanged. No gross pneumothorax is demonstrated Impression: Interim enteric tube placement, tip position indeterminate, although appearing satisfactory on subsequent abdomen radiograph Equivocally slightly improved pulmonary parenchymal aeration, over 2 hours Other stable findings as described This agrees with the preliminary interpretation provided overnight by [facility] service.
--- NOTE | 2018-02-21 11:00 | Diagnostic Imaging Report ---
Indication: Abdominal distention Technique: Supine view of the upper abdomen Comparison: none Findings: There is an enteric tube in place, tip projected at the level of the gastric fundus, proximal port beyond the gastroesophageal junction Impression: Limited exam demonstrating satisfactory position of enteric tube This agrees with the preliminary interpretation provided overnight by [facility] service.
--- NOTE | 2018-02-21 15:58 | Cardiology Report ---
APPROVED REPORT EKG Measurement Heart [id number] Normal sinus rhythm Left axis deviation Right bundle branch block Possible Lateral infarct, age undetermined Abnormal ECG
--- NOTE | 2018-02-21 23:35 | Diagnostic Imaging Report ---
APPROVED REPORT CPT Code: 61510 Present Symptoms Shortness of breath BILATERAL: Imaging reveals a patent deep venous system bilaterally. There is no evidence of thrombus within the femoral, popliteal or tibial segments. The greater saphenous veins are also within normal limits. Doppler indicates normal spontaneous flow within these segments. Technically difficult study due to patient body habitus.
--- NOTE | 2018-02-22 11:10 | Discharge Summary ---
Discharge Summary Discharge Summary _ DATE OF ADMISSION: 02/19/2018 DATE OF DISCHARGE: 02/21/2018 BRIEF SUMMARY: Patient is an unfortunate 57-year-old male, with history of hypertension, diabetes, CKD, obesity and obstructive sleep apnea, presented to ED due to change in mental status. He was complaining of severe generalized weakness for 3 weeks. He was unable to get up and stand on his own. He had been recently dieting and was only eating vegetables and drinking water. He was using laxatives which has caused diffuse diarrhea. He had bilateral hip pain for several weeks. He denied fever. Denied abdominal pain. Denied chest pain. On evaluation at ED, he was severely hypotensive, blood pressure was 77/55. He was given fluid resuscitation. Blood work showed hemoglobin of 8.5 and hematocrit 24, platelet count was 60. He was noted to have elevated potassium level of 7.8, sodium was 129 and chloride was 96. BUN was elevated to 82/ creatinine 9.6. Baseline creatinine was 2-3. EKG was done and showed bradycardia with prolonged VA interval and wide QRS. Chest x-ray showed no acute disease. He continued to be hypotensive despite IV fluids. He was given insulin and dextrose, he was given calcium gluconate and sodium bicarbonate. A hemodialysis catheter and central line was placed to the right IJ. He was admitted to ICU in critical condition. He was noted to have low platelet count and was anemic. He was started on IV iron and folic acid. He had low platelet counts. Hepatitis and HIV panel negative. Potassium continued to rise. Renal ultrasound showed normal echogenicity. He was given Kayexalate and was eventually started on hemodialysis. He was started on Zosyn and daptomycin pending culture results. He continued to have profound acidosis without compensation. He was initially tried on BiPAP and PEEP was increased. Despite dialysis, he remained acidotic. Patient required intubation. He was noted to have elevated troponin. EKG showed sinus bradycardia with nonspecific ST and T wave abnormalities. He is not a candidate for antiplatelet therapy. Echocardiogram revealed normal LV systolic function EF 60 -65% with severely decreased RV systolic function likely secondary to ONELIA. Venous duplex was negative. He continued to be hypotensive despite being on pressors. A CODE BLUE was called. Resuscitative efforts failed and patient eventually . FINAL DIAGNOSES: Cardiopulmonary arrest Septic shock Acute hypercapnic hypoxic respiratory failure Acute on chronic renal failure requiring hemodialysis Morbid obesity Hyponatremia Diabetes type 2, uncontrolled with low blood sugar Noncompliance with medication and treatment advice as outpatient Acute on chronic anemia Abnormal liver function tests Severe hyperkalemia Thrombocytopenia Obstructive sleep apnea Bacteremia, blood culture with CONS DISPOSITION: Patient . I have been assigned to dictate discharge summary on this account, and I was not involved in the patient's management. Amanda Kidd NP Feb 22, 2018 11:10
== END 2018-02-21 07:30 | disposition expired | DRG 871 ==
LOC: EDBD 17:43 → EDBEDREQ 18:17 → EMR 19:14 → ICU 19:19 → EDBEDREQ 20:36
PROC: 02HV33Z Insertion of Infusion Device into Superior Vena Cava, Percutaneous Approach (ICD-10-PCS; principal; 2018-02-19)
PROC: 02H633Z Insertion of Infusion Device into Right Atrium, Percutaneous Approach (ICD-10-PCS; principal; 2018-02-19)
PROC: 5A1D70Z Performance of Urinary Filtration, Intermittent, Less than 6 Hours Per Day (ICD-10-PCS; 2018-02-20)
PROC: 0BH17EZ Insertion of Endotracheal Airway into Trachea, Via Natural or Artificial Opening (ICD-10-PCS; 2018-02-20)
PROC: 3E043XZ Introduction of Vasopressor into Central Vein, Percutaneous Approach (ICD-10-PCS; 2018-02-20)
PROC: 30233N1 Transfusion of Nonautologous Red Blood Cells into Peripheral Vein, Percutaneous Approach (ICD-10-PCS; 2018-02-20)
PROC: 5A1935Z Respiratory Ventilation, Less than 24 Consecutive Hours (ICD-10-PCS; 2018-02-20)
DX: A41.9 Sepsis, unspecified organism (principal); R65.21 Severe sepsis with septic shock; G93.40 Encephalopathy, unspecified; J96.22 Acute and chronic respiratory failure with hypercapnia; J96.21 Acute and chronic respiratory failure with hypoxia; N17.9 Acute kidney failure, unspecified; Z68.43 Body mass index [BMI] 50.0-59.9, adult; E66.2 Morbid (severe) obesity with alveolar hypoventilation; E87.1 Hypo-osmolality and hyponatremia; E66.01 Morbid (severe) obesity due to excess calories; G47.33 Obstructive sleep apnea (adult) (pediatric); E86.0 Dehydration; E87.5 Hyperkalemia; E78.5 Hyperlipidemia, unspecified; E11.649 Type 2 diabetes mellitus with hypoglycemia without coma; D69.6 Thrombocytopenia, unspecified; E11.22 Type 2 diabetes mellitus with diabetic chronic kidney disease; I12.9 Hypertensive chronic kidney disease with stage 1 through stage 4 chronic kidney disease, or unspecified chronic kidney disease; N18.9 Chronic kidney disease, unspecified; M25.552 Pain in left hip; M25.551 Pain in right hip; Z74.01 Bed confinement status; D63.1 Anemia in chronic kidney disease; Z99.81 Dependence on supplemental oxygen; Z91.14 Patient's other noncompliance with medication regimen; Z91.19 Patient's noncompliance with other medical treatment and regimen; Z78.1 Physical restraint status
CPT/HCPCS: 36415; 36600; 71045; 74018; 76700; 76770; 80048; 80053; 80061; 81003; 82248; 82270; 82550; 82607; 82728; 82746; 82803; 82962; 82977; 83010; 83036; 83540; 83550; 83605; 83615; 83735; 83880; 84100; 84443; 84484; 84550; 85007; 85025; 85044; 86140; 86703; 86705; 86709; 86803; 86850; 86900; 86901; 86920; 87040; 87081; 87086; 87340; 93005; 93306; 93970; 94002; 94003; 94640; 94664; J1815; J7620